=== PATIENT | male | born 1945 | race American Indian/Alaskan Native ===

== ENCOUNTER 2018-07-28 14:11 | Emergency (ER) | payer MEDICARE, OTHER ==
[~2018-07-28] VITALS: Ht 180.3 cm; Wt 91.6 kg
--- OUTSIDE RECORDS SUMMARY | ~2018-07-28 | XMS | Encounter Summary ---
Demographics + + + | Address | [address] | | | [place] [address] | + + + | Home Phone | | + + + | Preferred Language | Unknown | + + + | Marital Status | Unknown | + + + | Congregational Affiliation | 1077 | + + + | Race | Unknown | + + + | Ethnic Group | Unknown | + + + Author + + + | Author | [facility] | + + + | Organization | [facility] | + + + | Address | Unknown | + + + | Phone | Unavailable | + + + Support + + +---------+ + | Name | Relationship | Address | Phone | + + +---------+ + | Betty Conner | ECON | Unknown | | + + +---------+ + Care Team Providers + +------+ + | Care Barrel Filler Head Name | Role | Phone | + +------+ + | Clifton Stevens MD | PCP | | + +------+ + Reason for Visit +--------+ + | Reason | Comments | +--------+ + | Other | April 2018-[facility] Provider Dialysis Rounding Note | +--------+ + Encounter Details +--------+ + + + + | Date | Type | Department | Care Team | Description | +--------+ + + + + | 05/14/ | Documentati | [facility] | Josh Franklin MD | Other (April | 2018 | on Only | [place] [address] | [address] | 2019-[facility] Provider | | | | [address] | [address] [place], [place] | Dialysis Rounding | | | | [place] [address] | [address] | Note) | | | | [phone] | | | +--------+ + + + + Social History + + + +--------+ + | Tobacco Use | Types | Packs/Day | Years | Date | | | | | Used | | + + + +--------+ + | Former Smoker | Cigarettes | 0.5 | 2 | Quit: 11/10/1968 | + + + +--------+ + + +---+---+---+ | Smokeless Tobacco: | | | | | Never Used | | | | + +---+---+---+ + + +---------+ + | Alcohol Use | Drinks/We | oz/Week | Comments | | | ek | | | + + +---------+ + | Yes | 1 Cans | 1.2 | occasional | | | of beer | | | | | 1 | | | | | Standard | | | | | drinks or | | | | | | | | | | equivalen | | | | | t | | | + + +---------+ + + + + | Sex Assigned at | Date Recorded | | | | + + + | Not on file | | + + + as of this encounter Plan of Treatment +--------+---------+ + + + | Date | Type | Specialty | Care Team | Description | +--------+---------+ + + + | 08/04/ | Office | Cardiology | Yazan Sullivan, | | | 2018 | Visit | | MD Colin Levin | | | | | | Dr [place], | | | | | | [place] [address] | | | | | | [phone] | | | | | | | | +--------+---------+ + + + as of this encounter Visit Diagnoses Not on filein this encounter"
--- OUTSIDE RECORDS SUMMARY | ~2018-07-28 | XMS | Encounter Summary ---
Demographics + + + | Address | [address] | | | [place] [address] | + + + | Home Phone | | + + + | Preferred Language | Unknown | + + + | Marital Status | Unknown | + + + | Baptist Affiliation | 1077 | + + + | Race | Unknown | + + + | Ethnic Group | Unknown | + + + Author + + + | Author | [facility] | + + + | Organization | [facility] | + + + | Address | Unknown | + + + | Phone | Unavailable | + + + Support + + +---------+ + | Name | Relationship | Address | Phone | + + +---------+ + | Betty Conner | ECON | Unknown | | + + +---------+ + Care Team Providers + +------+ + | Care Group Chief Operator Name | Role | Phone | + +------+ + | Clifton Stevens MD | PCP | | + +------+ + Encounter Details +--------+ + + + + | Date | Type | Department | Care Team | Description | +--------+ + + + + | 05/06/ | Ancillary | [facility] | Clifton Stevens MD | Congestive heart | | 2019 | Orders | ECHO | [id number] | failure, unspecified | | | | | [place] | HF chronicity, | | | | | [address] | unspecified heart | | | | | | failure type (HCC) | +--------+ + + + + Social [...] [place], | | | | | | [place] [address] | | | | | | [phone] | | | | | | | | +--------+---------+ + + + as of this encounter Results ECHO outside interpretation standard (05/06/2018 4:57 PM) + + + | Impressions | Performed At | + + + | 1. The left ventricle is mildly dilated, inferior segment | [facility] | | hypokinesis, moderately impaired systolic function EF 35-40%. 2. The | RADIOLOGY | | right ventricle is mildly enlarged with mildly impaired systolic | | | function. 3. Mild tricuspid regurgitation and severe pulmonary | | | hypertension RVSP 65 mmHg. 4. There is no pericardial effusion. 5. | | | Compared to the findings of the prior study, left ventricular systolic | | | function has deteriorated and pulmonary pressure increased. | | + + + + + + | Narrative | Performed At | + + + | Patient Name: Sj Alex Date of | [facility] | | : 1945 Performing | RADIOLOGY | | Physician: Yazan Sullivan | | | | | | INDICATIONS CHF CONCLUSIONS 1. The | | | left ventricle is mildly dilated, inferior segment hypokinesis, | | | moderately impaired systolic function EF 35-40%. 2. The right | | | ventricle is mildly enlarged with mildly impaired systolic function. | | | 3. Mild tricuspid regurgitation and severe pulmonary hypertension RVSP | | | 65 mmHg. 4. There is no pericardial effusion. 5. Compared to the | | | findings of the prior study, left ventricular systolic function has | | | deteriorated and pulmonary pressure increased. FINDINGS -------- | | | ECG rhythm: Sinus rhythm. Study: A 2-dimensional transthoracic | | | echocardiogram with m-mode, spectral and color flow Doppler was | | | perfomed. Study: This was a technically adequate study. Left | | | Ventricle: Overall left ventricular systolic function is moderately | | | impaired with, an EF between 35 - 40 %. Left Ventricle: The left | | | ventricle is mildly dilated. Left Ventricle: There is mild | | | concentric left ventricular hypertrophy. Left Ventricle: There is | | | moderate global hypokinesis of LV contractility. Left Ventricle: | | | Pseudonormal LV diastolic filling pattern, consistent with elevated LA | | | pressure and moderate dysfunction (Grade II). Right Ventricle: The | | | right ventricle is mildly enlarged. Right Ventricle: The right | | | ventricular systolic function is mildly impaired. Left Atrium: The | | | left atrium is moderately enlarged. Right Atrium: The right atrium is | | | mildly enlarged. Aortic Valve: The aortic valve appears to be | | | trileaflet. Aortic Valve: The aortic valve is mildly calcified. | | | Aortic Valve: Trace amount of aortic regurgitation. Aortic Valve: | | | There is no evidence of aortic stenosis. Aortic Valve: Aortic valve | | | is mildly thickened. Mitral Valve: Mild mitral regurgitation is | | | present. Mitral Valve: Mild mitral annular calcification present. | | | Tricuspid Valve: The tricuspid valve appears structurally normal. | | | Tricuspid Valve: Mild tricuspid regurgitation present. Tricuspid | | | Valve: There is moderate to severe pulmonary hypertension. Tricuspid | | | Valve: The right ventricular systolic pressure (pulmonary artery | | | systolic pressure), as measured by Doppler, is 65.84mmHg. Pulmonic | | | Valve: The pulmonic valve is normal. Pulmonic Valve: | | | Trace pulmonic regurgitation. Pericardium: There is no pericardial | | | effusion. Pericardium: No pleural effusion seen. IVC/Hepatic | | | Veins: The IVC is normal size (1.5-2.5cm) and collapses about 50% with | | | sniff, consistent with central venous pressures of 10 mmHg. Aorta: | | | The aortic root, ascending aorta and aortic arch are grossly normal in | | | size. General comments: Compared to the findings of the prior study, | | | left ventricular systolic function has deteriorated and pulmonary | | | pressure increased. MEASUREMENTS Ao Diam: 3.72 | | | cm Ao sinus: 4.[address] junct: 4.43 cm IVC: 2.27 cm | | | LA Major: 6.14 cm EDV(Teich): 169.12 ml IVSd: 1.30 cm | | | LVIDd: 5.83 cm LVPWd: 1.26 cm LVOT Diam: 2.42 cm | | | %FS: 19.91 % EF(Teich): 40.19 % ESV(Teich): 101.14 ml | | | LVIDs: 4.67 cm SV(Teich): 67.97 ml RA Major: 5.84 cm RV | | | Major: 9.17 cm RV Minor: 4.81 cm RVIDd: 3.76 cm LVEF | | | MOD A2C: 36.31 % SV MOD A2C: 64.17 ml LVEF MOD A4C: | | | 39.15 % SV MOD A4C: 81.15 ml EF Biplane: 38.55 % LVEDV MOD | | | BP: 196.49 ml LVESV MOD BP: 120.73 ml LVEDV MOD A2C: | | | 176.71 ml LVLd A2C: 9.83 cm LVEDV MOD A4C: 207.25 ml LVLd | | | A4C: 10.37 cm LVESV MOD A2C: 112.54 ml LVLs A2C: 8.85 cm | | | LVESV MOD A4C: 126.10 ml LVLs A4C: 9.10 cm LAESV(A-L): | | | 96.37 ml LAESV Index (A-L): 44.82 ml/m2 LAAs A2C: 24.58 cm2 | | | LAESV A-L A2C: 85.82 ml LAESV MOD A2C: 84.22 ml LALs | | | A2C: 5.97 cm LAAs A4C: 27.60 cm2 LAESV A-L A4C: 99.51 ml | | | LAESV MOD A4C: 87.03 ml LALs A4C: 6.49 cm RAAs: 21.69 | | | cm2 RAESV A-L: 69.03 ml RAESV MOD: 66.90 ml RALs: 5.78 | | | cm TAPSE: 1.63 cm AV Env.Ti: 265.67 ms AV maxP.06 | | | mmHg AV meanP.06 mmHg AV Vmax: 1.12 m/s AV Vmean: | | | 0.82 m/s AV VTI: 21.86 cm OLIVIA Vmax: 3.02 cm2 OLIVIA (VTI): | | | 3.56 cm2 AVAI Vmax: 0.00 cm2/m2 AVAI (VTI): 0.00 cm2/m2 | | | LVOT Env.Ti: 361.77 ms LVOT maxP.17 mmHg LVOT | | | meanP.07 mmHg LVSI Dopp: 36.24 ml/m2 LVSV Dopp: | | | 77.92 ml LVOT Vmax: 0.73 m/s LVOT Vmean: 0.46 m/s LVOT | | | VTI: 16.90 cm MV A Kimani: 0.33 m/s MV Dec [facility] [place]: 3.50 m/s2 | | | MV DecT: 140.55 ms MV E Kimani: 0.49 m/s MV E/A Ratio: | | | 1.45 E/E' Sept: 11.99 E' Lat: 0.07 m/s E' Sept: 0.04 | | | m/s RAP: 10 mmHg RVSP: 65.83 mmHg TR maxP.83 mmHg | | | TR Vmax: 3.73 m/s Containers Sales Representative: Authenticated by: Yazan | | | [facility] Report Date/Time: 05-06-2018 19:38:26 | | + + + + + | Procedure Note | + + | Ghanshyam, Rad Results In - 05/06/2018 7:40 PM PST Patient Name: Fabien Alex | | of : 1945ccession: [id number] Physician: Yazan | | [facility] INDICATIONS------ | | -----CHFCONCLUSIONS 1. The left ventricle is mildly dilated, inferior segment | | hypokinesis, moderately impaired systolic function EF 35-40%.2. The right ventricle is | | mildly enlarged with mildly impaired systolic function.3. Mild tricuspid regurgitation | | and severe pulmonary hypertension RVSP 65 mmHg.4. There is no pericardial effusion.5. | | Compared to the findings of the prior study, left ventricular systolic function has | | deteriorated and pulmonary pressure increased.FINDINGS--------ECG rhythm: Sinus | | rhythm.Study: A 2-dimensional transthoracic echocardiogram with m-mode, spectral and | | color flow Doppler was perfomed. Study: This was a technically adequate study.Left | | Ventricle: Overall left ventricular systolic function is moderately impaired with, an EF | | between 35 - 40 %. Left Ventricle: The left ventricle is mildly dilated. Left | | Ventricle: There is mild concentric left ventricular hypertrophy. Left Ventricle: There | | is moderate global hypokinesis of LV contractility. Left Ventricle: Pseudonormal LV | | diastolic filling pattern, consistent with elevated LA pressure and moderate dysfunction | | (Grade II).Right Ventricle: The right ventricle is mildly enlarged. Right Ventricle: | | The right ventricular systolic function is mildly impaired.Left Atrium: The left atrium | | is moderately enlarged.Right Atrium: The right atrium is mildly enlarged.Aortic Valve: | | The aortic valve appears to be trileaflet. Aortic Valve: The aortic valve is mildly | | calcified. Aortic Valve: Trace amount of aortic regurgitation. Aortic Valve: There is | | no evidence of aortic stenosis. Aortic Valve: Aortic valve is mildly thickened.Mitral | | Valve: Mild mitral regurgitation is present. Mitral Valve: Mild mitral annular | | calcification present.Tricuspid Valve: The tricuspid valve appears structurally normal. | | Tricuspid Valve: Mild tricuspid regurgitation present. Tricuspid Valve: There is | | moderate to severe pulmonary hypertension. Tricuspid Valve: The right ventricular | | systolic pressure (pulmonary artery systolic pressure), as measured by Doppler, is | | 65.84mmHg.Pulmonic Valve: The pulmonic valve is normal. Pulmonic Valve: Trace pulmonic | | regurgitation.Pericardium: There is no pericardial effusion. Pericardium: No pleural | | effusion seen.IVC/Hepatic Veins: The IVC is normal size (1.5-2.5cm) and collapses about | | 50% with sniff, consistent with central venous pressures of 10 mmHg.Aorta: The aortic | | root, ascending aorta and aortic arch are grossly normal in size.General comments: | | Compared to the findings of the prior study, left ventricular systolic function has | | deteriorated and pulmonary pressure increased.MEASUREMENTS Ao Diam: 3.72 | | cmAo sinus: 4.[address] junct: 4.43 cmIVC: 2.27 cmLA Major: 6.14 cmEDV(Teich): | | 169.12 mlIVSd: 1.30 cmLVIDd: 5.83 cmLVPWd: 1.26 cmLVOT Diam: 2.42 cm%FS: | | 19.91 %EF(Teich): 40.19 %ESV(Teich): 101.14 mlLVIDs: 4.67 cmSV(Teich): 67.97 | | mlRA Major: 5.84 cmRV Major: 9.17 cmRV Minor: 4.81 cmRVIDd: 3.76 cmLVEF MOD A2C: | | 36.31 %SV MOD A2C: 64.17 mlLVEF MOD A4C: 39.15 %SV MOD A4C: 81.15 mlEF Biplane: | | 38.55 %LVEDV MOD BP: 196.49 mlLVESV MOD BP: 120.73 mlLVEDV MOD A2C: 176.71 | | mlLVLd A2C: 9.83 cmLVEDV MOD A4C: 207.25 mlLVLd A4C: 10.37 cmLVESV MOD A2C: | | 112.54 mlLVLs A2C: 8.85 cmLVESV MOD A4C: 126.10 mlLVLs A4C: 9.10 cmLAESV(A-L): | | 96.37 mlLAESV Index (A-L): 44.82 ml/m2LAAs A2C: 24.58 [id number] A-L A2C: 85.82 | | mlLAESV MOD A2C: 84.22 mlLALs A2C: 5.97 cmLAAs A4C: 27.60 [id number] A-L A4C: | | 99.51 mlLAESV MOD A4C: 87.03 mlLALs A4C: 6.49 cmRAAs: 21.69 [id number] A-L: 69.03 | | mlRAESV MOD: 66.90 mlRALs: 5.78 cmTAPSE: 1.63 cmAV Env.Ti: 265.67 msAV maxPG: | | 5.06 mmHgAV meanP.06 mmHgAV Vmax: 1.12 m/Kelvin Vmean: 0.82 m/Kelvin VTI: 21.86 | | cmAVA Vmax: 3.02 cm2AVA (VTI): 3.56 [id number] Vmax: 0.00 cm2/m2AVAI (VTI): 0.00 | | cm2/m2LVOT Env.Ti: 361.77 msLVOT maxP.17 mmHgLVOT meanP.07 mmHgLVSI Dopp: | | 36.24 ml/m2LVSV Dopp: 77.92 mlLVOT Vmax: 0.73 m/sLVOT Vmean: 0.46 m/sLVOT VTI: | | 16.90 cmMV A Kimani: 0.33 m/sMV Dec [facility] [place]: 3.50 m/s2MV DecT: 140.55 msMV E Kimani: | | 0.49 m/sMV E/A Ratio: 1.45 E/E' Sept: 11.99 E' Lat: 0.07 m/sE' Sept: 0.04 | | m/sRAP: 10 mmHgRVSP: 65.83 mmHgTR maxP.83 mmHgTR Vmax: 3.73 m/sSonographer: | | Authenticated by: Yazan SullivanReport Date/Time: 05-06-2018 19:38:26IMPRESSION:1. The | | left ventricle is mildly dilated, inferior segment hypokinesis, moderately impaired | | systolic function EF 35-40%.2. The right ventricle is mildly enlarged with mildly | | impaired systolic function.3. Mild tricuspid regurgitation and severe pulmonary | | hypertension RVSP 65 mmHg.4. There is no pericardial effusion.5. Compared to the | | findings of the prior study, left ventricular systolic function has deteriorated and | | pulmonary pressure increased. | |EDV(Teich): 169.12 ml | |IVSd: 1.30 cm | |LVIDd: 5.83 cm | |LVPWd: 1.26 cm | |LVOT Diam: 2.42 cm | |%FS: 19.91 % | |EF(Teich): 40.19 % | |ESV(Teich): 101.14 ml | |LVIDs: 4.67 cm | |SV(Teich): 67.97 ml | |RA Major: 5.84 cm | |RV Major: 9.17 cm | |RV Minor: 4.81 cm | |RVIDd: 3.76 cm | |LVEF MOD A2C: 36.31 % | |SV MOD A2C: 64.17 ml | |LVEF MOD A4C: 39.15 % | |SV MOD A4C: 81.15 ml | |EF Biplane: 38.55 % | |LVEDV MOD BP: 196.49 ml | |LVESV MOD BP: 120.73 ml | |LVEDV MOD A2C: 176.71 ml | |LVLd A2C: 9.83 cm | |LVEDV MOD A4C: 207.25 ml | |LVLd A4C: 10.37 cm | |LVESV MOD A2C: 112.54 ml | |LVLs A2C: 8.85 cm | |LVESV MOD A4C: 126.10 ml | |LVLs A4C: 9.10 cm | |LAESV(A-L): 96.37 ml | |LAESV Index (A-L): 44.82 ml/m2 | |LAAs A2C: 24.58 cm2 | |LAESV A-L A2C: 85.82 ml | |LAESV MOD A2C: 84.22 ml | |LALs A2C: 5.97 cm | |LAAs A4C: 27.60 cm2 | |LAESV A-L A4C: 99.51 ml | |LAESV MOD A4C: 87.03 ml | |LALs A4C: 6.49 cm | |RAAs: 21.69 cm2 | |RAESV A-L: 69.03 ml | |RAESV MOD: 66.90 ml | |RALs: 5.78 cm | |TAPSE: 1.63 cm | |AV Env.Ti: 265.67 ms | |AV maxP.06 mmHg | |AV meanP.06 mmHg | |AV Vmax: 1.12 m/s | |AV Vmean: 0.82 m/s | |AV VTI: 21.86 cm | |OLIVIA Vmax: 3.02 cm2 | |OLIVIA (VTI): 3.56 cm2 | |AVAI Vmax: 0.00 cm2/m2 | |AVAI (VTI): 0.00 cm2/m2 | |LVOT Env.Ti: 361.77 ms | |LVOT maxP.17 mmHg | |LVOT meanP.07 mmHg | |LVSI Dopp: 36.24 ml/m2 | |LVSV Dopp: 77.92 ml | |LVOT Vmax: 0.73 m/s | |LVOT Vmean: 0.46 m/s | |LVOT VTI: 16.90 cm | |MV A Kimani: 0.33 m/s | |MV Dec [facility] [place]: 3.50 m/s2 | |MV DecT: 140.55 ms | |MV E Kimani: 0.49 m/s | |MV E/A Ratio: 1.45 | |E/E' Sept: 11.99 | |E' Lat: 0.07 m/s | |E' Sept: 0.04 m/s | |RAP: 10 mmHg | |RVSP: 65.83 mmHg | |TR maxP.83 mmHg | |TR Vmax: 3.73 m/s | | | |Containers Sales Representative: | |Authenticated by: Yazan Robertluz | |Report Date/Time: 05-06-2018 19:38:26 | | | |IMPRESSION: | |1. The left ventricle is mildly dilated, inferior segment hypokinesis, moderately impaired systolic function EF 35-40%. | |2. The right ventricle is mildly enlarged with mildly impaired systolic function. | |3. Mild tricuspid regurgitation and severe pulmonary hypertension RVSP 65 mmHg. | |4. There is no pericardial effusion. | |5. Compared to the findings of the prior study, left ventricular systolic function has dete riorated and pulmonary pressure increased. | + + + + + + + | Performing | Address | City/State/Zipcode | Phone Number | | Organization | | | | + + + + + | [facility] | [address] | [place] [address] | | + + + + + in this encounter Visit Diagnoses + + | Diagnosis | + + | Congestive heart failure, unspecified HF chronicity, unspecified heart failure type | | (HCC) | + +"
--- OUTSIDE RECORDS SUMMARY | ~2018-07-28 | XMS | Encounter Summary ---
Demographics + + + | Address | [address] [place] [address] | | | [place] [address] | + + + | Home Phone | | + + + | Preferred Language | Unknown | + + + | Marital Status | Unmarried Domestic Partner | + + + | Baptism Affiliation | Unknown | + + + | Race | or | + + + | Ethnic Group | Not or | + + + Author + + + | Author | [facility] [employer] [facility] | + + + | Organization | [facility] [employer] [facility] | + + + | Address | Unknown | + + + | Phone | Unavailable | + + + Support + + +---------+ + | Name | Relationship | Address | Phone | + + +---------+ + | Betty Conner | ECON | Unknown | | + + +---------+ + Care Team Providers + +------+ + | Care Pulverizer Operator Name | Role | Phone | + +------+ + | Clifton Stevens MD | PCP | | + +------+ + Reason for Visit + + + | Reason | Comments | + + + | Financial Review | | + + + Encounter Details +--------+ + + + + | Date | Type | Department | Care Team | Description | +--------+ + + + + | 01/09/ | Documentati | Transplant | Alvaro Mc[facility] | Financial Review | | 2014 | on | Coordinators [address] | [place], [place] | | | | | [address] | [address] | | | | | [address] [place], [place] | | | | | | [address] | | | | | | [phone] | | | +--------+ + + + + Social History + +-------+ +--------+------+ | Tobacco Use | Types | Packs/Day | Years | Date | | | | | Used | | + +-------+ +--------+------+ | Never Assessed | | | | | + +-------+ +--------+------+ + + + | Sex Assigned at | Date Recorded | | | | + + + | Not on file | | + + + + + + + | Job Start Date | Occupation | Industry | + + + + | Not on file | Not on file | Not on file | + + + + + + + + | Travel History | Travel Start | Travel End | + + + + + + | No recent travel history available. | + + documented as of this encounter Plan of Treatment Not on filedocumented as of this encounter Visit Diagnoses Not on filedocumented in this encounter"
--- OUTSIDE RECORDS SUMMARY | ~2018-07-28 | XMS | Encounter Summary ---
Demographics + + + | Address | [address] | | | [place] [address] | + + + | Home Phone | | + + + | Preferred Language | Unknown | + + + | Marital Status | Unknown | + + + | Taoist Affiliation | 1077 | + + + | Race | Unknown | + + + | Ethnic Group | Unknown | + + + Author + + + | Author | [facility] | + + + | Organization | [facility] [employer] [facility] | + + + | Address | Unknown | + + + | Phone | Unavailable | + + + Support + + +---------+ + | Name | Relationship | Address | Phone | + + +---------+ + | Betty Conner | ECON | Unknown | | + + +---------+ + Care Team Providers + +------+ + | Care Dairy Worker Name | Role | Phone | + +------+ + | Clifton Stevens MD | PCP | | + +------+ + Encounter Details +--------+ + + + + | Date | Type | Department | Care Team | Description | +--------+ + + + + | 05/06/ | Ancillary | [facility] | Clifton Stevens MD | Congestive heart | | 2019 | Procedure | ECHO | [id number] | failure, unspecified | | | | | [place] | HF chronicity, | | | | | [address] | unspecified heart | | | | [...] [place], | | | | | | [place] [address] | | | | | | [phone] | | | | | | | | +--------+---------+ + + + as of this encounter Procedures + +--------+ + + + | Procedure Name | Priori | Date/Time | Associated Diagnosis | Comments | | | ty | | | | + +--------+ + + + | ECHO OUTSIDE | Routin | 05/06/2018 | Congestive heart | Results for this | | INTERPRETATION | e | 4:57 PM | failure, unspecified | procedure are in the | | STANDARD | | PST | HF chronicity, | results section. | | | | | unspecified heart | | | | | | failure type (HCC) | | + +--------+ + + + in this encounter Results ECHO outside interpretation standard [...] Patient Name: Sj Alex Date of | [facility] | | : 1945 Performing | RADIOLOGY [...] MV A Kimani: 0.33 m/s MV Dec Ro[place]: 3.50 m/s2 | | | MV DecT: 140.55 ms MV E Kimani: 0.49 m/s MV E/A Ratio: | | | 1.45 E/E' Sept: 11.99 E' Lat: 0.07 m/s E' Sept: 0.04 | | | m/s RAP: 10 mmHg RVSP: 65.83 mmHg TR maxP.83 mmHg | | | TR Vmax: 3.73 m/s Django Developer: Authenticated by: Yazan | | | Nate Report Date/Time: 05-06-2018 19:38:26 | | + + + + + | Procedure Note | + + | Rafael Morrissey Results In - 05/06/2018 7:40 PM PST Patient Name: Fabien Alex | | of : 1945ccession: [id number] Physician: Yazan | | [place] INDICATIONS------ | | -----CHFCONCLUSIONS 1. The left [...] mlLAESV Index (A-L): 44.82 ml/m2LAAs A2C: 24.58 [id number] A-L A2C: 85.82 | | mlLAESV MOD A2C: 84.22 mlLALs A2C: 5.97 cmLAAs A4C: 27.60 [id number] A-L A4C: | | 99.51 mlLAESV MOD A4C: 87.03 mlLALs A4C: 6.49 cmRAAs: 21.69 [id number] A-L: 69.03 | | mlRAESV MOD: 66.90 mlRALs: 5.78 cmTAPSE: 1.63 cmAV Env.Ti: 265.67 msAV maxPG: | | 5.06 mmHgAV meanP.06 mmHgAV Vmax: 1.12 m/Kelvin Vmean: 0.82 m/Kelvin VTI: 21.86 | | cmAVA Vmax: 3.02 cm2AVA (VTI): 3.56 [id number] Vmax: 0.00 cm2/m2AVAI (VTI): 0.00 | | cm2/m2LVOT Env.Ti: 361.77 msLVOT maxP.17 mmHgLVOT meanP.07 mmHgLVSI Dopp: | | 36.24 ml/m2LVSV Dopp: 77.92 mlLVOT Vmax: 0.73 m/sLVOT Vmean: 0.46 m/sLVOT VTI: | | 16.90 cmMV A Kimani: 0.33 m/sMV Dec Rolette: 3.50 m/s2MV DecT: 140.55 msMV E Kimani: | | 0.49 m/sMV E/A Ratio: 1.45 E/E' Sept: 11.99 E' Lat: 0.07 m/sE' Sept: 0.04 | | m/sRAP: 10 mmHgRVSP: 65.83 mmHgTR maxP.83 mmHgTR Vmax: 3.73 m/sSonographer: | | Authenticated by: Yazan Butcher Date/Time: 05-06-2018 19:38:26IMPRESSION:1. The | | left [...] A Kimani: 0.33 m/s | |MV Dec Rolette: 3.50 m/s2 | |MV DecT: 140.55 ms | |MV E Kimani: 0.49 m/s | |MV E/A Ratio: 1.45 | |E/E' Sept: 11.99 | |E' Lat: 0.07 m/s | |E' Sept: 0.04 m/s | |RAP: 10 mmHg | |RVSP: 65.83 mmHg | |TR maxP.83 mmHg | |TR Vmax: 3.73 m/s | | | |Django Developer: | |Authenticated by: Yazan Sullivan | |Report Date/Time: 05-06-2018 19:38:26 | | [...] | + + + + + | [facility] | [address] | [place] [address] | | + + + + + in this encounter Visit Diagnoses + + | Diagnosis | + + | Congestive heart failure, unspecified HF chronicity, unspecified heart failure type | | (HCC) | + +"
--- OUTSIDE RECORDS SUMMARY | ~2018-07-28 | XMS | Encounter Summary ---
Demographics + + + | Address | [address] [place] [address] | | | [place] [address] | + + + | Home Phone | | + + + | Preferred Language | Unknown | + + + | Marital Status | Unmarried Domestic Partner | + + + | Rastafari Affiliation | Unknown | + + + | Race | or | + + + | Ethnic Group | Not or | + + + Author + + + | Author | [facility] [employer] [facility] | + + + | Organization | [facility] [employer] [facility] | + + + | Address | Unknown | + + + | Phone | Unavailable | + + + Support + + +---------+ + | Name | Relationship | Address | Phone | + + +---------+ + | Betty Conner | ECON | Unknown | | + + +---------+ + Care Team Providers + +------+ + | Care Barrel Assembly Inspector Name | Role | Phone | + +------+ + | Clifton Stevens MD | PCP | | + +------+ + Encounter Details +--------+ + + + + | Date | Type | Department | Care Team | Description | +--------+ + + + + | 12/26/ | Hospital | Registration [facility] | | | | 2014 | Encounter | [address] | | | | | | [place] | | | | | | [place], [place] | | | | | | [address] | | | +--------+ + + + [...]
--- OUTSIDE RECORDS SUMMARY | ~2018-07-28 | XMS | Encounter Summary ---
Demographics + + + | Address | [address] | | | [place] [address] | + + + | Home Phone | | + + + | Preferred Language | Unknown | + + + | Marital Status | Unknown | + + + | Rastafarian Affiliation | 1077 | + + + | Race | Unknown | + + + | Ethnic Group | Unknown | + + + Author + + + | Author | [facility] | + + + | Organization | [facility] | + + + | Address | Unknown | + + + | Phone | Unavailable | + + + Support + + +---------+ + | Name | Relationship | Address | Phone | + + +---------+ + | Betty Conner | ECON | Unknown | | + + +---------+ + Care Team Providers + +------+ + | Care Assistant Paralegal Name | Role | Phone | + +------+ + | Clifton Stevens MD | PCP | | + +------+ + Reason for Visit +--------+ + | Reason | Comments | +--------+ + | Other | May 2018-[facility] Provider Dialysis Rounding Note | +--------+ + Encounter Details +--------+ + + + + | Date | Type | Department | Care Team | Description | +--------+ + + + + | 06/16/ | Documentati | [facility] | Josh Franklin MD | Other (May | | 2018 | on Only | [address] | [facility] Provider | | | | [address] | [address] [place], [place] | Dialysis Rounding | | | | [place] [address] | [phone] | Note) | | | | [phone] | | | +--------+ + + + [...] [place], | | | | | | [place] [address] | | | | | | [phone] | | | | | | | | +--------+---------+ + + + as of this encounter Visit Diagnoses Not on filein this encounter"
--- OUTSIDE RECORDS SUMMARY | ~2018-07-28 | XMS | Encounter Summary ---
Demographics + + + | Address | [address] | | | [place] [address] | + + + | Home Phone | | + + + | Preferred Language | Unknown | + + + | Marital Status | Unknown | + + + | Methodist Affiliation | 1077 | + + + | Race | Unknown | + + + | Ethnic Group | Unknown | + + + Author + + + | Author | [facility] | + + + | Organization | [facility] | + + + | Address | Unknown | + + + | Phone | Unavailable | + + + Support + + +---------+ + | Name | Relationship | Address | Phone | + + +---------+ + | Betty Conner | ECON | Unknown | | + + +---------+ + Care Team Providers + +------+ + | Care Corporate Ethics Officer Name | Role | Phone | + +------+ + | Clifton Stevens MD | PCP | | + +------+ + Encounter Details +--------+ + + + + | Date | Type | Department | Care Team | Description | +--------+ + + + + | 06/15/ | Ancillary | [facility] | Ruby Manley FNP | Dyspnea, unspecified | | 2019 | Procedure | ECHO | [address] | type | | | | | [place] | | | | | | [id number] | | | | | | | | +--------+ + + + [...] 08/04/ | Office | Cardiology | Yazan Bo, | | | 2019 | Visit | | MD Colin Levin | | | | | | Dr [address], | | | | | | [place] [address] | | | | | | [phone] | | | | | | | | +--------+---------+ + + + as of this encounter Procedures + +--------+ + + + | Procedure Name | Priori | Date/Time | Associated Diagnosis | Comments | | | ty | | | | + +--------+ + + + | ECHO OUTSIDE | Routin | 06/15/2018 | Dyspnea, | Results for this | | INTERPRETATION | e | 12:49 PM | unspecified type | procedure are in the | | STANDARD | | PDT | | results section. | + +--------+ + + + in this encounter Results ECHO outside interpretation standard (06/15/2018 12:49 PM) + + + | Impressions | Performed At | + + + | 1. The left ventricle is normal in size, mild concentric hypertrophy | [facility] | | and severely impaired systolic function EF 25-30%. 2. The right | RADIOLOGY | | ventricle is mildly enlarged with impaired systolic function. 3. | | | Severe tricuspid regurgitation and moderate to severe pulmonary | | | hypertension RVSP 62 mmHg. 4. There is no pericardial effusion. 5. | | | Compared to the findings of the prior study, left ventricular systolic | | | function has deteriorated. | | + + + + + + | Narrative | Performed At | + + + | Patient Name: AbiSj Date of | [facility] | | : 1945 Performing | RADIOLOGY | | Physician: Yazan Bo MD | | | | | | INDICATIONS dyspnea CONCLUSIONS 1. The | | | left ventricle is normal in size, mild concentric hypertrophy and | | | severely impaired systolic function EF 25-30%. 2. The right ventricle | | | is mildly enlarged with impaired systolic function. 3. Severe | | | tricuspid regurgitation and moderate to severe pulmonary hypertension | | | RVSP 62 mmHg. 4. There is no pericardial effusion. 5. Compared to | | | the findings of the prior study, left ventricular systolic function | | | has deteriorated. FINDINGS -------- ECG rhythm: Sinus rhythm. | | | Study: A 2-dimensional transthoracic echocardiogram with m-mode, | | | spectral and color flow Doppler was perfomed. Study: This was a | | | technically adequate study. Left Ventricle: Overall left ventricular | | | systolic function is severely impaired with, an EF between 25 - 30 %. | | | Left Ventricle: The left ventricle cavity size is normal. Left | | | Ventricle: There is mild concentric left ventricular hypertrophy. | | | Left Ventricle: There is severe global hypokinesis of LV | | | contractility. Left Ventricle: Restrictive LV diastolic filling | | | pattern, consistent with elevated LA pressure and severe dysfunction | | | (grade III). Right Ventricle: The right ventricle is mildly enlarged. | | | Right Ventricle: The right ventricular systolic function is | | | moderately impaired. Left Atrium: The left atrium is mildly enlarged. | | | Right Atrium: The right atrium is markedly enlarged. Aortic Valve: | | | Aortic valve is mildly thickened. Aortic Valve: The aortic valve | | | appears to be trileaflet. Aortic Valve: The aortic valve is mildly | | | calcified. Aortic Valve: Trace amount of aortic regurgitation. | | | Aortic Valve: There is no evidence of aortic stenosis. Mitral Valve: | | | Mild mitral regurgitation is present. Mitral Valve: Mild mitral | | | annular calcification present. Tricuspid Valve: The tricuspid valve | | | appears structurally normal. Tricuspid Valve: Severe tricuspid | | | regurgitation present. Tricuspid Valve: There is moderate to severe | | | pulmonary hypertension. Tricuspid Valve: The right ventricular | | | systolic pressure (pulmonary artery systolic pressure), as measured by | | | Doppler, is 62.22mmHg. Pulmonic Valve: The pulmonic valve is normal. | | | Pulmonic Valve: Trace pulmonic regurgitation. Pericardium: | | | There is no pericardial effusion. Pericardium: No pleural effusion | | | seen. IVC/Hepatic Veins: The IVC is dilated (>2.5cm) and collapses | | | <50% with sniff, consistent with central venous pressures of | | | 15-20mmHg. Aorta: The Sinus of Valsalva 46 mm, St Junction 41 mm | | | and ascending aorta 40 mm are dilated. General comments: Compared | | | to the findings of the prior study, left ventricular systolic function | | | has deteriorated. MEASUREMENTS Ao asc: 4.00 | | | cm Ao Diam: 3.74 cm Ao sinus: 4.[address] junct: 4.12 | | | cm IVC: 3.01 cm EDV(Teich): 135.16 ml IVSd: 1.29 cm | | | LVIDd: 5.29 cm LVPWd: 1.31 cm LVOT Area: 3.98 cm2 LVOT | | | Diam: 2.25 cm %FS: 17.04 % EF(Teich): 35.33 % | | | ESV(Teich): 87.40 ml LVIDs: 4.39 cm SV(Teich): 47.75 ml | | | RV Major: 9.28 cm RV Minor: 4.82 cm RVIDd: 3.74 cm | | | LVEF MOD A2C: 32.09 % SV MOD A2C: 51.24 ml LVEF MOD A4C: | | | 35.16 % SV MOD A4C: 67.69 ml EF Biplane: 33.80 % LVEDV MOD | | | BP: 175.80 ml LVESV MOD BP: 116.37 ml LVEDV MOD A2C: | | | 159.66 ml LVLd A2C: 9.89 cm LVEDV MOD A4C: 192.51 ml LVLd | | | A4C: 10.05 cm LVESV MOD A2C: 108.42 ml LVLs A2C: 9.21 cm | | | LVESV MOD A4C: 124.82 ml LVLs A4C: 9.18 cm LAESV(A-L): | | | 87.49 ml LAESV Index (A-L): 40.69 ml/m2 LAAs A2C: 25.94 cm2 | | | LAESV A-L A2C: 88.53 ml LALs A2C: 6.45 cm LAAs A4C: | | | 25.60 cm2 LAESV A-L A4C: 86.33 ml LALs A4C: 6.44 cm | | | RAAs: 28.17 cm2 RAESV A-L: 98.31 ml RAESV MOD: 96.39 ml | | | RALs: 6.85 cm TAPSE: 1.55 cm AV maxP.29 mmHg AV | | | meanP.40 mmHg AV Vmax: 1.35 m/s AV Vmean: 0.84 m/s | | | AV VTI: 23.87 cm OLIVIA Vmax: 2.45 cm2 OLIVIA (VTI): 2.54 cm2 | | | AVAI Vmax: 0.00 cm2/m2 AVAI (VTI): 0.00 cm2/m2 LVOT | | | maxP.75 mmHg LVOT meanP.34 mmHg LVSI Dopp: 28.31 | | | ml/m2 LVSV Dopp: 60.87 ml LVOT Vmax: 0.83 m/s LVOT | | | Vmean: 0.55 m/s LVOT VTI: 15.26 cm MV A Kimani: 0.46 m/s | | | MV Dec Oscoda: 6.39 m/s2 MV DecT: 136.62 ms MV E Kimani: | | | 0.87 m/s MV E/A Ratio: 1.86 MV PHT: 39.62 ms MVA By | | | PHT: 5.55 cm2 Septal e': 0.03 m/s Septal E/e': 25.15 | | | Lateral e': 0.09 m/s Lateral E/e': 8.73 RAP: 20 mmHg | | | RV S': 0.09 m/s RVSP: 62.21 mmHg TR maxP.21 mmHg | | | TR Vmax: 3.24 m/s Respiratory Therapy Assistant: MALIHA Authenticated | | | by: Yazan Bo MD Report Date/Time: 06-15-2018 18:11:23 | | + + + + + | Procedure Note | + + | Rafael Morrissey In - 06/15/2018 6:20 PM PDT Patient Name: Fabien Alex | | of : 1945ccession: [id number] Physician: Yazan Bo MD | | INDICATIONS dys | | pneaCONCLUSIONS 1. The left ventricle is normal in size, mild concentric | | hypertrophy and severely impaired systolic function EF 25-30%.2. The right ventricle is | | mildly enlarged with impaired systolic function.3. Severe tricuspid regurgitation and | | moderate to severe pulmonary hypertension RVSP 62 mmHg.4. There is no pericardial | | effusion.5. Compared to the findings of the prior study, left ventricular systolic | | function has deteriorated.FINDINGS--------ECG rhythm: Sinus rhythm.Study: A | | 2-dimensional transthoracic echocardiogram with m-mode, spectral and color flow Doppler | | was perfomed. Study: This was a technically adequate study.Left Ventricle: Overall left | | ventricular systolic function is severely impaired with, an EF between 25 - 30 %. Left | | Ventricle: The left ventricle cavity size is normal. Left Ventricle: There is mild | | concentric left ventricular hypertrophy. Left Ventricle: There is severe global | | hypokinesis of LV contractility. Left Ventricle: Restrictive LV diastolic filling | | pattern, consistent with elevated LA pressure and severe dysfunction (grade III).Right | | Ventricle: The right ventricle is mildly enlarged. Right Ventricle: The right | | ventricular systolic function is moderately impaired.Left Atrium: The left atrium is | | mildly enlarged.Right Atrium: The right atrium is markedly enlarged.Aortic Valve: Aortic | | valve is mildly thickened. Aortic Valve: The aortic valve appears to be trileaflet. | | Aortic Valve: The aortic valve is mildly calcified. Aortic Valve: Trace amount of aortic | | regurgitation. Aortic Valve: There is no evidence of aortic stenosis.Mitral Valve: | | Mild mitral regurgitation is present. Mitral Valve: Mild mitral annular calcification | | present.Tricuspid Valve: The tricuspid valve appears structurally normal. Tricuspid | | Valve: Severe tricuspid regurgitation present. Tricuspid Valve: There is moderate to | | severe pulmonary hypertension. Tricuspid Valve: The right ventricular systolic pressure | | (pulmonary artery systolic pressure), as measured by Doppler, is 62.22mmHg.Pulmonic | | Valve: The pulmonic valve is normal. Pulmonic Valve: Trace pulmonic | | regurgitation.Pericardium: There is no pericardial effusion. Pericardium: No pleural | | effusion seen.IVC/Hepatic Veins: The IVC is dilated (>2.5cm) and collapses <50% with | | sniff, consistent with central venous pressures of 15-20mmHg.Aorta: The Sinus of | | Valsalva [address] mm, [address] Junction 41 mm and ascending aorta 40 mm are dilated.General | | comments: Compared to the findings of the prior study, left ventricular systolic | | function has deteriorated.MEASUREMENTS Ao asc: 4.00 cmAo Diam: 3.74 cmAo | | sinus: 4.[address] junct: 4.12 cmIVC: 3.01 cmEDV(Teich): 135.16 mlIVSd: 1.29 | | cmLVIDd: 5.29 cmLVPWd: 1.31 cmLVOT Area: 3.98 cm6QSDN Diam: 2.25 cm%FS: 17.04 | | %EF(Teich): 35.33 %ESV(Teich): 87.40 mlLVIDs: 4.39 cmSV(Teich): 47.75 mlRV | | Major: 9.28 cmRV Minor: 4.82 cmRVIDd: 3.74 cmLVEF MOD A2C: 32.09 %SV MOD A2C: | | 51.24 mlLVEF MOD A4C: 35.16 %SV MOD A4C: 67.69 mlEF Biplane: 33.80 %LVEDV MOD BP: | | 175.80 mlLVESV MOD BP: 116.37 mlLVEDV MOD A2C: 159.66 mlLVLd A2C: 9.89 cmLVEDV | | MOD A4C: 192.51 mlLVLd A4C: 10.05 cmLVESV MOD A2C: 108.42 mlLVLs A2C: 9.21 | | cmLVESV MOD A4C: 124.82 mlLVLs A4C: 9.18 cmLAESV(A-L): 87.49 mlLAESV Index (A-L): | | 40.69 ml/m2LAAs A2C: 25.94 [id number] A-L A2C: 88.53 mlLALs A2C: 6.45 cmLAAs A4C: | | 25.60 [id number] A-L A4C: 86.33 mlLALs A4C: 6.44 cmRAAs: 28.17 [id number] A-L: | | 98.31 mlRAESV MOD: 96.39 mlRALs: 6.85 cmTAPSE: 1.55 cmAV maxP.29 mmHgAV | | meanP.40 mmHgAV Vmax: 1.35 m/Kelvin Vmean: 0.84 m/Kelvin VTI: 23.87 cmAVA Vmax: | | 2.45 cm2AVA (VTI): 2.54 [id number] Vmax: 0.00 cm2/m2AVAI (VTI): 0.00 cm2/m2LVOT | | maxP.75 mmHgLVOT meanP.34 mmHgLVSI Dopp: 28.31 ml/m2LVSV Dopp: 60.87 | | mlLVOT Vmax: 0.83 m/sLVOT Vmean: 0.55 m/sLVOT VTI: 15.26 cmMV A Kimani: 0.46 m/sMV | | Dec Oscoda: 6.39 m/s2MV DecT: 136.62 msMV E Kimani: 0.87 m/sMV E/A Ratio: 1.86 MV | | PHT: 39.62 msMVA By PHT: 5.55 bg3Odvtiv e': 0.03 m/sSeptal E/e': 25.15 Lateral | | e': 0.09 m/sLateral E/e': 8.73 RAP: 20 mmHgRV S': 0.09 m/sRVSP: 62.21 mmHgTR | | maxP.21 mmHgTR Vmax: 3.24 m/sSonographer: DBSAuthenticated by: Anupam, | | [facility] Date/Time: 06-15-2018 18:11:23IMPRESSION:1. The left ventricle is normal | | in size, mild concentric hypertrophy and severely impaired systolic function EF | | 25-30%.2. The right ventricle is mildly enlarged with impaired systolic function.3. | | Severe tricuspid regurgitation and moderate to severe pulmonary hypertension RVSP 62 | | mmHg.4. There is no pericardial effusion.5. Compared to the findings of the prior study, | | left ventricular systolic function has deteriorated. | |IVC: 3.01 cm | |EDV(Teich): 135.16 ml | |IVSd: 1.29 cm | |LVIDd: 5.29 cm | |LVPWd: 1.31 cm | |LVOT Area: 3.98 cm2 | |LVOT Diam: 2.25 cm | |%FS: 17.04 % | |EF(Teich): 35.33 % | |ESV(Teich): 87.40 ml | |LVIDs: 4.39 cm | |SV(Teich): 47.75 ml | |RV Major: 9.28 cm | |RV Minor: 4.82 cm | |RVIDd: 3.74 cm | |LVEF MOD A2C: 32.09 % | |SV MOD A2C: 51.24 ml | |LVEF MOD A4C: 35.16 % | |SV MOD A4C: 67.69 ml | |EF Biplane: 33.80 % | |LVEDV MOD BP: 175.80 ml | |LVESV MOD BP: 116.37 ml | |LVEDV MOD A2C: 159.66 ml | |LVLd A2C: 9.89 cm | |LVEDV MOD A4C: 192.51 ml | |LVLd A4C: 10.05 cm | |LVESV MOD A2C: 108.42 ml | |LVLs A2C: 9.21 cm | |LVESV MOD A4C: 124.82 ml | |LVLs A4C: 9.18 cm | |LAESV(A-L): 87.49 ml | |LAESV Index (A-L): 40.69 ml/m2 | |LAAs A2C: 25.94 cm2 | |LAESV A-L A2C: 88.53 ml | |LALs A2C: 6.45 cm | |LAAs A4C: 25.60 cm2 | |LAESV A-L A4C: 86.33 ml | |LALs A4C: 6.44 cm | |RAAs: 28.17 cm2 | |RAESV A-L: 98.31 ml | |RAESV MOD: 96.39 ml | |RALs: 6.85 cm | |TAPSE: 1.55 cm | |AV maxP.29 mmHg | |AV meanP.40 mmHg | |AV Vmax: 1.35 m/s | |AV Vmean: 0.84 m/s | |AV VTI: 23.87 cm | |OLIVIA Vmax: 2.45 cm2 | |OLIVIA (VTI): 2.54 cm2 | |AVAI Vmax: 0.00 cm2/m2 | |AVAI (VTI): 0.00 cm2/m2 | |LVOT maxP.75 mmHg | |LVOT meanP.34 mmHg | |LVSI Dopp: 28.31 ml/m2 | |LVSV Dopp: 60.87 ml | |LVOT Vmax: 0.83 m/s | |LVOT Vmean: 0.55 m/s | |LVOT VTI: 15.26 cm | |MV A Kimani: 0.46 m/s | |MV Dec Oscoda: 6.39 m/s2 | |MV DecT: 136.62 ms | |MV E Kimani: 0.87 m/s | |MV E/A Ratio: 1.86 | |MV PHT: 39.62 ms | |MVA By PHT: 5.55 cm2 | |Septal e': 0.03 m/s | |Septal E/e': 25.15 | |Lateral e': 0.09 m/s | |Lateral E/e': 8.73 | |RAP: 20 mmHg | |RV S': 0.09 m/s | |RVSP: 62.21 mmHg | |TR maxP.21 mmHg | |TR Vmax: 3.24 m/s | | | |Respiratory Therapy Assistant: DBS | |Authenticated by: Yazan Bo MD | |Report Date/Time: 06-15-2018 18:11:23 | | | |IMPRESSION: | |1. The left ventricle is normal in size, mild concentric hypertrophy and severely impaired systolic function EF 25-30%. | |2. The right ventricle is mildly enlarged with impaired systolic function. | |3. Severe tricuspid regurgitation and moderate to severe pulmonary hypertension RVSP 62 mmH g. | |4. There is no pericardial effusion. | |5. Compared to the findings of the prior study, left ventricular systolic function has dete riorated. | + + + + + + + | Performing | Address | City/State/Zipcode | Phone Number | | Organization | | | | + + + + + | [facility] | [address] | [place] [address] | | + + + + + in this encounter Visit Diagnoses + + | Diagnosis | + + | Dyspnea, unspecified type | + +"
--- OUTSIDE RECORDS SUMMARY | ~2018-07-28 | XMS | Encounter Summary ---
Demographics + + + | Address | [address] [place] [address] | | | [place] [address] | + + + | Home Phone | | + + + | Preferred Language | Unknown | + + + | Marital Status | Unmarried Domestic Partner | + + + | Amish Affiliation | Unknown | + + + | Race | or | + + + | Ethnic Group | Not or | + + + Author + + + | Author | [place] [employer] [facility] | + + + | Organization | [facility] [employer] [facility] | + + + | Address | Unknown | + + + | Phone | Unavailable | + + + Support + + +---------+ + | Name | Relationship | Address | Phone | + + +---------+ + | Betty Conner | ECON | Unknown | | + + +---------+ + Care Team Providers + +------+ + | Care Apprenticeship Training Representative Name | Role | Phone | + [...] | on | Coordinators [address] | [place], [place] | | | | | [address] | [address] | | | | | [address] [place], [place] | | | | | | [address] | | | | | | [phone] | | | +--------+ + + + [...]
--- OUTSIDE RECORDS SUMMARY | ~2018-07-28 | XMS | Encounter Summary ---
Demographics + + + | Address | [address] [place] [address] | | | [place] [address] | + + + | Home Phone | | + + + | Preferred Language | Unknown | + + + | Marital Status | Unmarried Domestic Partner | + + + | Judaism Affiliation | Unknown | + + + | Race | or | + + + | Ethnic Group | Not or | + + + Author + + + | Author | [facility] | + + + | Organization | [facility] | + + + | Address | Unknown | + + + | Phone | Unavailable | + + + Support + + +---------+ + | Name | Relationship | Address | Phone | + + +---------+ + | Betty Conner | ECON | Unknown | | + + +---------+ + Care Team Providers + +------+ + | Care Meteorological Engineer Name | Role | Phone | + +------+ + | Clifton Stevens MD | PCP | | + +------+ + Encounter Details +--------+ + + + + | Date | Type | Department | Care Team | Description | +--------+ + + + + | 04/01/ | Lab | [facility] | | | | 2017 | Requisition | [facility] | | | | | | [address] | | | | | | [place] | | | | | | [place], [place] | | | | | | [address] | | | +--------+ + + + [...] Not on filedocumented as of this encounter Procedures + +--------+ + + + | Procedure Name | Priori | Date/Time | Associated Diagnosis | Comments | | | ty | | | | + +--------+ + + + | HLA VA KIDNEY | Routin | 04/01/2017 | | Results for this | | RECIPIENT PANEL | e | 10:40 AM | | procedure are in the | | | | PST | | results section. | + +--------+ + + + | LIT FLOW HLA AB PRA | Routin | 04/01/2017 | | | | SCREEN I/II | e | 10:40 AM | | | | | | PST | | | + +--------+ + + + | LIT HLA-B LOW RES | Routin | 04/01/2017 | | | | | e | 10:40 AM | | | | | | PST | | | + +--------+ + + + | LIT HLA-A LOW RES | Routin | 04/01/2017 | | | | | e | 10:40 AM | | | | | | PST | | | + +--------+ + + + | LIT RBC GROUP - [place], | Routin | 04/01/2017 | | | | BLOOD | e | 10:40 AM | | | | | | PST | | | + +--------+ + + + | LIT-HLA-DR LOW RES | Routin | 04/01/2017 | | Results for this | | | e | 10:40 AM | | procedure are in the | | | | PST | | results section. | + +--------+ + + + documented in this encounter Results LIT FLOW HLA AB PRA SCREEN I/II (04/01/2017 10:40 AM PST) + + | Specimen | + + | Blood | + + + + + + + | Performing | Address | City/State/Zipcode | Phone Number | | Organization | | | | + + + + + | [facility] - | [address] | [place], [place] [address] | | | IMMUNOGENETICS[facility]TRANS | [address] | | | | [facility] | | | | + + + + + LIT-HLA-DR LOW RES (04/01/2017 10:40 AM PST) + + + + + + | Component | Value | Ref Range | Performed | Pathologist | | | | | At | Signature | + + + + + + | LABEL ONLY | Please see lab report | | [facility] - | | | - LIT | for result. | | [facility] | | | | | | ICS/TRANSPL | | | | | | ANT | | | | | | LABORATORY | | + + + + + + + + | Specimen | + + | Blood | + + + + + + + | Performing | Address | City/State/Zipcode | Phone Number | | Organization | | | | + + + + + | [facility] - | [address] | [place] [address] | | | IMMUNOGENETICS/TRANS | [address] | | | | [facility] | | | | + + + + + LIT HLA-B LOW RES (04/01/2017 10:40 AM PST) + + | Specimen | + + | Blood | + + + + + + + | Performing | Address | City/State/Zipcode | Phone Number | | Organization | | | | + + + + + | [facility] - | [address] | [place], [place] | | | IMMUNOGENETICS[facility]TRANS | [address] | | | | [facility] | | | | + + + + + LIT HLA-A LOW RES (04/01/2017 10:40 AM PST) + + | Specimen | + + | Blood | + + + + + + + | Performing | Address | City/State/Zipcode | Phone Number | | Organization | | | | + + + + + | [facility] - | [address] | [place], [place] | | | IMMUNOGENETICS[facility]TRANS | [address] | | | | [facility] | | | | + + + + + LIT RBC GROUP - [place], BLOOD (04/01/2017 10:40 AM PST) + + | Specimen | + + | Blood | + + + + + + + | Performing | Address | City/State/Zipcode | Phone Number | | Organization | | | | + + + + + | [facility] - | [address] | [place] [address] | | | IMMUNOGENETICS/TRANS | [address] | | | | [facility] | | | | + + + + + documented in this encounter Visit Diagnoses Not on filedocumented in this encounter"
--- OUTSIDE RECORDS SUMMARY | ~2018-07-28 | XMS | Encounter Summary ---
Demographics + + + | Address | [address] | | | [place] [address] | + + + | Home Phone | | + + + | Preferred Language | Unknown | + + + | Marital Status | Unknown | + + + | Mu-Ism Affiliation | 1077 | + + + | Race | Unknown | + + + | Ethnic Group | Unknown | + + + Author + + + | Author | [email or web address] | + + + | Organization | [facility] | + + + | Address | Unknown | + + + | Phone | Unavailable | + + + Support + + +---------+ + | Name | Relationship | Address | Phone | + + +---------+ + | Betty Conner | ECON | Unknown | | + + +---------+ + Care Team Providers + +------+ + | Care Shrinking Machine Operator Name | Role | Phone | + +------+ + | Clifton Stevens MD | PCP | | + +------+ + Encounter Details +--------+ + + + + | Date | Type | Department | Care Team | Description | +--------+ + + + + | 06/15/ | Ancillary | [facility] | Ruby Manley FNP | Dyspnea, unspecified | | 2019 | Orders | ECHO | [address] | type | | | | | [place] | | | | | | [id number] | | | | | | | [...] | | | | | | [place] [address] | | | | | | [phone] | | | | | | | [...] Patient Name: Sj Alex Date of | [facility] | | : 1945 Performing [...] 0.46 m/s | | | MV Dec [place]: 6.39 m/s2 MV DecT: 136.62 ms MV [...] | | | TR Vmax: 3.24 m/s Autocutter: MALIHA Authenticated | | | by: Yazan Bo MD Report Date/Time: 06-15-2018 18:11:23 | | + + + + + | Procedure Note | + + | Ghanshyam, Rad Results In - 06/15/2018 6:20 PM PDT Patient Name: Fabien Alex | | of : 1945ccession: [id number] Physician: Yazan Bo MD | | INDICATIONS [...] cmLVIDd: 5.29 cmLVPWd: 1.31 cmLVOT Area: 3.98 [id number] Diam: 2.25 cm%FS: 17.04 | | %EF(Teich): [...] (A-L): | | 40.69 ml/m2LAAs A2C: 25.94 [id number] A-L A2C: 88.53 mlLALs A2C: 6.45 cmLAAs A4C: | | 25.60 rd0LUUEX A-L A4C: 86.33 mlLALs A4C: 6.44 cmRAAs: 28.17 [id number] A-L: | | 98.31 mlRAESV MOD: 96.39 mlRALs: 6.85 cmTAPSE: 1.55 cmAV maxP.29 mmHgAV | | meanP.40 mmHgAV Vmax: 1.35 m/Kelvin Vmean: 0.84 m/Kelvin VTI: 23.87 cmAVA Vmax: | | 2.45 cm2AVA (VTI): 2.54 kf2XCWS Vmax: 0.00 cm2/m2AVAI (VTI): 0.00 cm2/m2LVOT | | maxP.75 mmHgLVOT meanP.34 mmHgLVSI Dopp: 28.31 ml/m2LVSV Dopp: 60.87 | | mlLVOT Vmax: 0.83 m/sLVOT Vmean: 0.55 m/sLVOT VTI: 15.26 cmMV A Kimani: 0.46 m/sMV | | Dec [place]: 6.39 m/s2MV DecT: 136.62 msMV E Kimani: 0.87 m/sMV E/A Ratio: 1.86 MV | | PHT: 39.62 msMVA By PHT: 5.55 gp8Hzttpv e': 0.03 m/sSeptal E/e': 25.15 Lateral | | e': 0.09 m/sLateral E/e': 8.73 RAP: 20 mmHgRV S': 0.09 m/sRVSP: 62.21 mmHgTR | | maxP.21 mmHgTR Vmax: 3.24 m/sSonographer: DBSAuthenticated by: Anupam | | Yazan MDReport Date/Time: 06-15-2018 18:11:23IMPRESSION:1. The left ventricle [...] A Kimani: 0.46 m/s | |MV Dec [facility]: 6.39 m/s2 | |MV DecT: 136.62 ms [...] |TR Vmax: 3.24 m/s | | | |Autocutter: DBS | |Authenticated by: Yazan Bo MD [...] | + + + + + | [facility] | [address] | [place] [address] | | + + + + + in this encounter Visit Diagnoses + + | Diagnosis | + + | Dyspnea, unspecified type | + +"
--- OUTSIDE RECORDS SUMMARY | ~2018-07-28 | XMS | Clinical Summary ---
Demographics + + + | Address | [address] [place] [address] | | | [place] [address] | + + + | Home Phone | | + + + | Preferred Language | Unknown | + + + | Marital Status | Unmarried Domestic Partner | + + + | Alevism Affiliation | Unknown | + + + | Race | or | + + + | Ethnic Group | Not or | + + + Author + + + | Author | [facility] | + + + | Organization | [facility] | + + + | Address | Unknown | + + + | Phone | Unavailable | + + + Support + + +---------+ + | Name | Relationship | Address | Phone | + + +---------+ + | Betty Conner | ECON | Unknown | | + + +---------+ + Care Team Providers + +------+ + | Care Music Historian Name | Role | Phone | + +------+ + | Clifton Stevens MD | PP | | + +------+ + Source Comments SANJAY is fully live on both [facility] Ambulatory and [facility] InPatient[facility] Allergies Not on File Medications Not on file Active Problems + + + | Problem | Noted Date | + + + | Hypertensive renal disease with renal failure | | + + + + + | Overview: 2728 diagnosis | + + Social History + +-------+ +--------+------+ [...] recent travel history available. | + + Plan of Treatment + + + + + | Health Maintenance | Due Date | Last Done | Comments | + + + + + | Pneumococcal (Adult) | | | | | (1 of 2 - PCV13) | 1 | | | + + + + + | Influenza (Flu) | | | | | vaccination (Season | 9 | | | | Ended) | | | | + + + + + Results Not on filefrom Last 3 Months Insurance + +--------+ +--------+ + +--------+ | Payer | Benefi | Subscriber | Effect | Phone | Address | Type | | | t Plan | ID | miguel | | | | | | / | | Dates | | | | | | Group | | | | | | + +--------+ +--------+ + +--------+ | MEDICARE | MEDICA | xxxxxxxxxx | Effect | [phone] | [address] | [address] | | | RE A & | | miguel | [phone] | [address] | | | [address] | | for | | [place] | | | | | | all | | [id number] | | | | | | dates | | | | + +--------+ +--------+ + +--------+ | [facility] | [facility] | [phone] | | | | Agency | | SERVICE | | | [phone] | | | | | | HEALTH | | esent | | | | | | | | | | | | | | SERVIC | | | | | | | | E | | | | | | + +--------+ +--------+ + +--------+ + +--------+ +--------+ + + | Guarantor Name | Accoun | Relation to | Date | Phone | Billing Address | | | t Type | Patient | of | | | | | | | | | | + +--------+ +--------+ + + | jS Alex | Person | Self | [birth year] | [address] | | A | al/Fam | | 1946 | [phone] | [place] | | | [place] | | | 3 (Home) | [address] | | | | | | [phone] | | | | | | | 1 (Work) | | + +--------+ +--------+ + +"
--- OUTSIDE RECORDS SUMMARY | ~2018-07-28 | XMS | Clinical Summary ---
Demographics + + + | Address | [address] | | | [place] [address] | + + + | Home Phone | | + + + | Preferred Language | Unknown | + + + | Marital Status | Unknown | + + + | Yazidi Affiliation | 1077 | + + + | Race | Unknown | + + + | Ethnic Group | Unknown | + + + Author + + + | Author | [facility] | + + + | Organization | [facility] | + + + | Address | Unknown | + + + | Phone | Unavailable | + + + Support + + +---------+ + | Name | Relationship | Address | Phone | + + +---------+ + | Betty Conner | ECON | Unknown | | + + +---------+ + Care Team Providers + +------+ + | Care Office Clerk Name | Role | Phone | + +------+ + | Clifton Stevens MD | PP | | + +------+ + Allergies No Known Allergies Current Medications + + +--------+---------+------+------+-------+ | Prescription | Sig. | Disp. | Refills | Star | End | Statu | | | | | | t | Date | s | | | | | | Date | | | + + +--------+---------+------+------+-------+ | furosemide (LASIX) | Take 80 mg by mouth | | | | | Activ | | 80 MG tablet | daily. | | | | | e | + + +--------+---------+------+------+-------+ | traMADol (ULTRAM) | Take 50 mg by mouth | | | | | Activ | | 50 MG tablet | every 6 (six) hours | | | | | e | | | as needed for Pain. | | | | | | + + +--------+---------+------+------+-------+ | b complex-vitamin | Take 0.8 mg by mouth | | | | | Activ | | c-folic acid | daily. | | | | | e | | (NEPHRO-HANNA) 0.8 MG | | | | | | | | TABS tablet | | | | | | | + + +--------+---------+------+------+-------+ | sevelamer | Take 1,600 mg by | | | | | Activ | | (RENVELA) 800 MG | mouth 3 (three) | | | | | e | | tablet | times daily with | | | | | | | | meals. | | | | | | + + +--------+---------+------+------+-------+ | losartan (COZAAR) | Take 1 tablet by | 90 | 2 | 09/0 | | Activ | | 50 MG tablet | mouth daily. | tablet | | 5/20 | | e | | | | | | 17 | | | + + +--------+---------+------+------+-------+ | SUCROFERRIC | Take 500 mg by mouth | | | | | Activ | | OXYHYDROXIDE PO | 3 (three) times | | | | | e | | | daily before meals. | | | | | | | | 1 tablet TID AC, and | | | | | | | | 1 tablet BID with | | | | | | | | snacks | | | | | | + + +--------+---------+------+------+-------+ | metoprolol | Take 1 tablet by | 90 | 2 | 03/2 | | Activ | | (TOPROL-XL) 25 MG 24 | mouth daily. | tablet | | 1/20 | | e | | hr tablet | | | | 18 | | | + + +--------+---------+------+------+-------+ | hydrALAZINE | Take 1 tablet by | 120 | 2 | 03/2 | | Activ | | (APRESOLINE) 50 MG | mouth 2 (two) times | tablet | | 1/20 | | e | | tablet | daily. 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 | | 69yo NAIM, with exertional shortness of breath, no | | significant symptoms at rest. There is no orthopnea, PND, or | | significant edema. Denies any significant chest discomfort. | | However he does have history of congestive heart failure, most | | likely due to volume overload. Cardiac workup led to coronary | | angiogram, high grade lesion mid-LAD stented, he tolerated | | procedure well. History of end-stage renal disease, hemodialysis | | (about 4 years), followed by Dr Franklin. Decreasing activity, | | increasing pain in his right hip, considering surgical | | replacement, however he will be on dual antiplatelet therapy for | | a minimum of 6 months, preferably a year, however, at 6 months | | we'll consider suspending Plavix in order for him to have surgery | | if hip pain is still significant. We plan to repeat Echo in a | | few months. Hx CABG: noHx PCI/stent: 06/07/2015, mid-LAD (3.0*20mm | | Promus Premier APOLLO).Hx Pacemaker/ICD: noLast Cath, 06/07/2015: | | left main OK, 20-30% osteal LAD, 70% mid-LAD, LCx OK, 40% | | mid-RCA. LAD FFR 0.72, LAD stented.Last Echo, ([facility] | | [facility]): moderate concentric LVH, biplane LVEF 42%, moderate | | LAE, moderate RVE, trace AI, trace MR, mild TR, trade PI, est | | systolic PAP 33-38mmHg, Ascending Aorta 41mm.Last Stress Test, | | 05/17/2015 ([facility]): Lexiscan, global hypokinesis, LVEF | | 37%.ECG, 06/08/2015: sinus rhythm, 50bpm, 1st degree AVB, | | RBBB/LAFB. | + + + + + | Iron deficiency | 04/14/2011 | + + + | Essential hypertension, malignant | 03/24/2011 | + + + + + | Last Assessment & Plan: Hypertension, controlled, continue | | current meds at current dose (amlodipine, clonidine, furosemide). | + + + + + | Nephrotic range proteinuria | 03/24/2011 | + + + | Vitamin D deficiency | 03/24/2011 | + + + | Dyslipidemia | 03/24/2011 | + + + | Secondary hyperparathyroidism (HCC) | 03/24/2011 | + + + Resolved Problems + + + + | Problem | Noted | Resolved | | | Date | Date | + + + + | CHF (congestive heart failure) | 04/11/19 | | | | 16 | 7 | + + + + + + | Last Assessment & Plan: CHF. 69yo JERMAIN, with | | exertional shortness of breath, no significant symptoms at rest. | | There is no orthopnea, PND, or significant edema. Denies any | | significant chest discomfort. However he does have history of | | congestive heart failure, most likely due to volume overload. | | History of hypertension, BP is well controlled. History of | | end-stage renal disease, hemodialysis (about 4 years), followed | | by Dr Franklin. No history of diabetes or CVA. Recent ECG, labs, | | echocardiogram, and nuclear perfusion study reviewed. Decreasing | | activity, increasing pain in his right hip, considering surgical | | replacement. Because of his need for dialysis, it has been | | suggested that he have his hip replacement in a hospital that has | | inability for in-hospital dialysis, this [facility] be [facility]. He will | | need to find an orthopedic surgeon who is willing to do the | | surgery. His LVEF is reduced for reasons not entirely clear, I | | would like to have him undergo coronary angiography before | | surgery. Will discuss this with Dr. Franklin.Hx CABG: noHx | | PCI/stent: noHx Pacemaker/ICD: noLast Cath: naLast Echo, | | ([facility]): moderate concentric LVH, biplane LVEF | | 42%, moderate LAE, moderate RVE, trace AI, trace MR, mild TR, | | trade PI, est systolic PAP 33-38mmHg, Ascending Aorta 41mm.Last | | Stress Test, 05/17/2015 ([facility]): Lexiscan, global | | hypokinesis, LVEF 37%.ECG, 03/18/2015 ([facility]): sinus | | rhythm, 77bpm, RBBB/LAFB. | + + + + + + | Metabolic acidemia | 04/14/19 | | | | 12 | 8 | + + + + | CKD (chronic kidney disease), stage IV | 03/24/19 | | | | 12 | 8 | + + + + + + | Last Assessment & Plan: ESRD, hemodialysis, followed by | | Labs, 06/08/2015: K: 5.3, BUN/Cr: 61/7.5, glu: 86 | | WBC: 5.6, H/H: 11.5/335.0, plt: 212 | + + + + + + | Anemia of chronic renal failure | 03/24/19 | | | | 12 | 7 | + + + + Encounters +--------+ + + + + | Date | Type | Specialty | Care Team | Description | +--------+ + + + + | 07/16/ | Documentati | | Josh Franklin MD | Other (June | on Only | | | 2018-Areli Provider | | | | | | Dialysis Rounding | | | | | | Note) | +--------+ + + + + | 06/16/ | Documentati | | Josh Franklin MD | Other (May | on Only | | | 2018-Areli Provider | | | | | | Dialysis Rounding | | | | | | Note) | +--------+ + + + + | 06/15/ | Ancillary | | Ruby Manley FNP | Dyspnea, unspecified | | 2018 | Procedure | | | type | +--------+ + + + + | 06/15/ | Ancillary | | Ruby Manley FNP | Dyspnea, unspecified | | 2019 | Orders | | | type | +--------+ + + + + | 06/15/ | Ancillary | | Ruby Manley FNP | | | 2018 | Orders | | | | +--------+ + + + + | 05/25/ | Documentati | | Felisha Mcpherson | Other ([facility] | 2018 | on Only | | LAVELLE Pitt | medication refill ) | +--------+ + + + + | 05/14/ | Documentati | | Josh Franklin MD | Other (April | 2018 | on Only | | | 2019-Areli Connors | | | | | | Hilda Roundnguyễn | | | | | | Note) | +--------+ + + + + | 05/06/ | Ancillary | | Clifton Stevens MD | Congestive heart | | 2018 | Procedure | | | failure, unspecified | | | | | | HF chronicity, | | | | | | unspecified heart | | | | | | failure type (HCC) | +--------+ + + + + | 05/06/ | Ancillary | | Clifton Stevens MD | Congestive heart | | 2019 | Orders | | | failure, unspecified | | | | | | HF chronicity, | | | | | | unspecified heart | | | | | | failure type (HCC) | +--------+ + + + + from Last 3 Months Immunizations + + + + | Name | Dates Previously Given | Next Due | + + + + | Pneumococcal | 02/08/2016 | | | Polysaccharide | | | | 23-valent | | | + + + + Family History + + +------+ + | Medical History | Relation | Name | Comments | + + +------+ + | Heart disease | Father | | | + + +------+ + | Diabetes type II | Mother | | | + + +------+ + | Heart disease | Mother | | | + + +------+ + + +------+ + + | Relation | Name | Status | Comments | + +------+ + + | Father | | | CHF, heart disease | | | | (Age | | | | | 95) | | + +------+ + + | Mother | | | heart disease, DMII, HTN | | | | (Age | | | | | 76) | | + +------+ + + Social History + + + [...] on file | | + + + Last Filed Vital Signs + + + + | Vital Sign | Reading | Time Taken | + + + + | Blood Pressure | 132/64 | 05/27/2017 3:26 PM PDT | + + + + | Pulse | 92 | 05/27/2017 3:26 PM PDT | + + + + | Temperature | 36.5 C (97.7 F) | 06/08/2015 3:53 AM PDT | + + + + | Respiratory Rate | 18 | 06/20/2015 3:57 PM PDT | + + + + | Oxygen Saturation | 96% | 05/27/2017 3:26 PM PDT | + + + + | Inhaled Oxygen | - | - | | Concentration | | | + + + + | Weight | 97.9 kg (215 lb 14.4 | 05/27/2017 3:26 PM PDT | | | oz) | | + + + + | Height | 180.3 cm (5' 11") | 05/27/2017 3:26 PM PDT | + + + + | Body Mass Index | 30.11 | 05/27/2017 3:26 PM PDT | + + + + Plan of Treatment +--------+---------+ + + + | Date | Type | Specialty | Care Team | Description | +--------+---------+ + + + | 08/04/ | Office | | Yazan Bo, | | | 2019 | Visit | | MD Colin Levin | | | | | | Dr Yu, | | | | | | [place] [address] | | | | | | [phone] | | | | | | | | +--------+---------+ + + + + + + + + | Health Maintenance | Due Date | Last Done | Comments | + + + + + | Vaccine: | | | | | Dtap/Tdap/Td (1 - | 5 | | | | Tdap) | | | | + + + + + | Colon Cancer | | | | | Screening | 6 | | | | (Colonoscopy) | | | | + + + + + | Vaccine: Zoster (1 | | | | | of 2) | 6 | | | + + + + + | Vaccine: | | 02/08/2016 | | | Pneumococcal 65+ | 7 | | | | High/Highest Risk (2 | | | | | of 2 - PCV13) | | | | + + + + + | Vaccine: Influenza | | | | | (Season Ended) | 9 | | | + + + + + Procedures + +--------+ + + + | [...] | | + +--------+ + + + from Last 3 Months Results ECHO outside interpretation standard (06/15/2018 12:49 [...] | + + + | Patient Name: Ella Alex Date of | [facility] | | : 1945 Performing [...] 0.46 m/s | | | MV Dec Dillon: 6.39 m/s2 MV DecT: 136.62 ms MV [...] | | | TR Vmax: 3.24 m/s Head Of Business Development: MALIHA Authenticated | | | by: Yazan Bo MD Report Date/Time: 06-15-2018 18:11:23 | | + + + + + | Procedure Note | + + | Ghanshyam, Rafael Results In - 06/15/2018 6:20 PM PDT Patient Name: Fabien Alex | | of : 1945ccession: [id number] Physician: Yazan Bo MD | | INDICATIONS [...] cmLVIDd: 5.29 cmLVPWd: 1.31 cmLVOT Area: 3.98 iz3CDEY Diam: 2.25 cm%FS: 17.04 | | %EF(Teich): [...] (A-L): | | 40.69 ml/m2LAAs A2C: 25.94 [id number] A-L A2C: 88.53 mlLALs A2C: 6.45 cmLAAs A4C: | | 25.60 kt7LEGEU A-L A4C: 86.33 mlLALs A4C: 6.44 cmRAAs: 28.17 en5TTVBV A-L: | | 98.31 mlRAESV MOD: 96.39 mlRALs: 6.85 cmTAPSE: 1.55 cmAV maxP.29 mmHgAV | | meanP.40 mmHgAV Vmax: 1.35 m/Kelvin Vmean: 0.84 m/Kelvin VTI: 23.87 cmAVA Vmax: | | 2.45 cm2AVA (VTI): 2.54 xh4QEDE Vmax: 0.00 cm2/m2AVAI (VTI): 0.00 cm2/m2LVOT | | maxP.75 mmHgLVOT meanP.34 mmHgLVSI Dopp: 28.31 ml/m2LVSV Dopp: 60.87 | | mlLVOT Vmax: 0.83 m/sLVOT Vmean: 0.55 m/sLVOT VTI: 15.26 cmMV A Kimani: 0.46 m/sMV | | Dec Dillon: 6.39 m/s2MV DecT: 136.62 msMV E Kimani: 0.87 m/sMV E/A Ratio: 1.86 MV | | PHT: 39.62 msMVA By PHT: 5.55 gi6Mcyhtu e': 0.03 m/sSeptal E/e': 25.15 Lateral | [...] A Kimani: 0.46 m/s | |MV Dec Dillon: 6.39 m/s2 | |MV DecT: 136.62 ms [...] |TR Vmax: 3.24 m/s | | | |Head Of Business Development: DBS | |Authenticated by: Yazan Bo MD [...] | + + + + + | [facility] | [address] | [place] [address] | | + + + + + ECHO outside interpretation standard (05/06/2018 4:57 PM) [...] | + + + | Patient Name: Ella Alex Date of | [facility] | | : 1945 Performing | RADIOLOGY | | Physician: Yazan Bo | | | | | | INDICATIONS [...] MV A Kimani: 0.33 m/s MV Dec Dillon: 3.50 m/s2 | | | MV DecT: 140.55 ms MV E Kimani: 0.49 m/s MV E/A Ratio: | | | 1.45 E/E' Sept: 11.99 E' Lat: 0.07 m/s E' Sept: 0.04 | | | m/s RAP: 10 mmHg RVSP: 65.83 mmHg TR maxP.83 mmHg | | | TR Vmax: 3.73 m/s Head Of Business Development: Authenticated by: Yazan | | | [facility] Report Date/Time: 05-06-2018 19:38:26 | | + + + + + | Procedure Note | + + | Rafael Morrissey Results In 05/06/2018 7:40 PM PST Patient Name: Fabien Alex | | of : 1945ccession: [id number] Physician: Yazan | | [place] INDICATIONS------ | | -----CHFCONCLUSIONS 1. The left [...] mlLAESV Index (A-L): 44.82 ml/m2LAAs A2C: 24.58 sy9PLIOH A-L A2C: 85.82 | | mlLAESV MOD A2C: 84.22 mlLALs A2C: 5.97 cmLAAs A4C: 27.60 cs5ADDQQ A-L A4C: | | 99.51 mlLAESV MOD A4C: 87.03 mlLALs A4C: 6.49 cmRAAs: 21.69 zl8IFZSA A-L: 69.03 | | mlRAESV MOD: 66.90 mlRALs: 5.78 cmTAPSE: 1.63 cmAV Env.Ti: 265.67 msAV maxPG: | | 5.06 mmHgAV meanP.06 mmHgAV Vmax: 1.12 m/Kelvin Vmean: 0.82 m/Kelvin VTI: 21.86 | | cmAVA Vmax: 3.02 cm2AVA (VTI): 3.56 be9WXAG Vmax: 0.00 cm2/m2AVAI (VTI): 0.00 | | cm2/m2LVOT Env.Ti: 361.77 msLVOT maxP.17 mmHgLVOT meanP.07 mmHgLVSI Dopp: | | 36.24 ml/m2LVSV Dopp: 77.92 mlLVOT Vmax: 0.73 m/sLVOT Vmean: 0.46 m/sLVOT VTI: | | 16.90 cmMV A Kimani: 0.33 m/sMV Dec Dillon: 3.50 m/s2MV DecT: 140.55 msMV E Kimani: | | 0.49 m/sMV E/A Ratio: 1.45 E/E' Sept: 11.99 E' Lat: 0.07 m/sE' Sept: 0.04 | | m/sRAP: 10 mmHgRVSP: 65.83 mmHgTR maxP.83 mmHgTR Vmax: 3.73 m/sSonographer: | | Authenticated by: Yazan BoReport Date/Time: 05-06-2018 19:38:26IMPRESSION:1. The | | left [...] A Kimani: 0.33 m/s | |MV Dec Dillon: 3.50 m/s2 | |MV DecT: 140.55 ms | |MV E Kimani: 0.49 m/s | |MV E/A Ratio: 1.45 | |E/E' Sept: 11.99 | |E' Lat: 0.07 m/s | |E' Sept: 0.04 m/s | |RAP: 10 mmHg | |RVSP: 65.83 mmHg | |TR maxP.83 mmHg | |TR Vmax: 3.73 m/s | | | |Head Of Business Development: | |Authenticated by: Yazan Bo | |Report Date/Time: 05-06-2018 19:38:26 | | [...] | + + + + + | [facility] | [address] | [place] [address] | | + + + + + from Last 3 Months Insurance + +--------+ +------+ + + | Payer | Benefi | Subscriber | Type | Phone | Address | | | t Plan | ID | | | | | | / | | | | | | | Group | | | | | + +--------+ +------+ + + | MEDICARE | MEDICA | [id number] | | | [address] | | | RE | | | | [place] [id number] | | | IP-OP | | | | | + +--------+ +------+ + + | [place] | [id number] | | [phone] [employer]EE [employer] [id number] | | ADMINISTRATION | CHOICE | | | [phone] | | | | | | [address] [place], [place] | | | | | | | [phone] | + +--------+ +------+ + + | [facility] | YELLOW | [id number] | | | | | PLANS | [place] | | | | | + +--------+ +------+ + + + +--------+ +--------+ + + | Guarantor Name | Accoun | Relation to | Date | Phone | Billing Address | | | t Type | Patient | of | | | | | | | | | | + +--------+ +--------+ + + | ELLA ALEX | Person | Self [birth year] | Home: | [address] | | A | al/Fam | | 1946 | +- | [place] | | | [place]cca | | | [phone] | [phone] | + +--------+ +--------+ + + | ELLA ALEX | Vetera | Self | [birth year] | [address]: | [address] | | [place] | ns | | 1946 | +- | [place] | | | Admini | | | [phone] | [phone] | | | strati | | | | | | | on | | | | | + +--------+ +--------+ + +
--- OUTSIDE RECORDS SUMMARY | ~2018-07-28 | XMS | Encounter Summary ---
Demographics + + + | Address | [address] [place] [address] | | | [place] [address] | + + + | Home Phone | | + + + | Preferred Language | Unknown | + + + | Marital Status | Unmarried Domestic Partner | + + + | Druze Affiliation | Unknown | + + + | Race | or | + + + | Ethnic Group | Not or | + + + Author + + + | Author | [facility] | + + + | Organization | [facility] | + + + | Address | Unknown | + + + | Phone | Unavailable | + + + Support + + +---------+ + | Name | Relationship | Address | Phone | + + +---------+ + | Betty Conner | ECON | Unknown | | + + +---------+ + Care Team Providers + +------+ + | Care Veneer Sander Name | Role | Phone | + +------+ + | Clifton Stevens MD | PCP | | + +------+ + Reason for Visit + + + | Reason | Comments | + + + | Pre Transplant | Intake | | Workup | | + + + Encounter Details +--------+ + + + + | Date | Type | Department | Care Team | Description | +--------+ + + + + | 12/12/ | Telephone | Transplant | Inge Bautista, | Pre Transplant | | 2014 | | Coordinators [id number] | [address] | Workup (Intake) | | | | [address] | [facility] | | | | | [address] [place], [place] | [place], [place] | | | | | [address] | [id number] | | | | | [phone] | | | +--------+ + + + [...]
--- OUTSIDE RECORDS SUMMARY | ~2018-07-28 | XMS | Clinical Summary ---
Demographics + + + | Address | [address] [place] [address] | | | [place] [address] | + + + | Home Phone | | + + + | Preferred Language | Unknown | + + + | Marital Status | Unmarried Domestic Partner | + + + | Restorationist Affiliation | Unknown | + + + | Race | or | + + + | Ethnic Group | Not or | + + + Author + + + | Author | [facility] | + + + | Organization | [facility] | + + + | Address | Unknown | + + + | Phone | Unavailable | + + + Support + + +---------+ + | Name | Relationship | Address | Phone | + + +---------+ + | Betty Conner | ECON | Unknown | | + + +---------+ + Care Team Providers + +------+ + | Care Caregivers Homecare Name | Role | Phone | + +------+ + | Clifton Stevens MD | PP | | + +------+ + Source Comments SANJAY is fully live on both [facility] and [facility] InPatient.[facility] Allergies Not on File Medications Not on [...] | | | | all | | [address] | | | | | | dates | | | | + +--------+ +--------+ + +--------+ | [facility] | [facility] | xxxx | | | | Agency [...] | + +--------+ +--------+ + + | Sj Alex | Person | Self | [birth year] | [address] | | A | al/Fam | | 1946 | [phone] | [place] | | | becca | | | 3 (Home) | [address] | | | | | | [phone] | | | | | | | 1 (Work) | | + +--------+ +--------+ + +"
--- OUTSIDE RECORDS SUMMARY | ~2018-07-28 | XMS | Encounter Summary ---
Demographics + + + | Address | [address] | | | [place] [address] | + + + | Home Phone | | + + + | Preferred Language | Unknown | + + + | Marital Status | Unknown | + + + | Mosque Affiliation | 1077 | + + + | Race | Unknown | + + + | Ethnic Group | Unknown | + + + Author + + + | Author | [facility] | + + + | Organization | [facility] [employer] | + + + | Address | Unknown | + + + | Phone | Unavailable | + + + Support + + +---------+ + | Name | Relationship | Address | Phone | + + +---------+ + | Betty Conner | ECON | Unknown | | + + +---------+ + Care Team Providers + +------+ + | Care Regulatory Submissions Associate Name | Role | Phone | + +------+ + | Clifton Stevens MD | PCP | | + +------+ + Reason for Visit +--------+ + | Reason | Comments | +--------+ + | Other | [facility] medication refill | +--------+ + Encounter Details +--------+ + + + + | Date | Type | Department | Care Team | Description | +--------+ + + + + | 03// | Documentati | ARIANNE Villa | Felisha Mcpherson | Other ([facility] | | 2019 | on Only | Lisha Leonard | LAVELLE Pitt | medication refill ) | | | | [address] | | | | | | [place] | | | | | | [address] | | | | | | [phone] | | | +--------+ + + + [...] [place], | | | | | | [place] [address] | | | | | | [phone] | | | | | | | | +--------+---------+ + + + as of this encounter Visit Diagnoses Not on filein this encounter"
--- OUTSIDE RECORDS SUMMARY | ~2018-07-28 | XMS | Encounter Summary ---
Demographics + + + | Address | [address] | | | [place] [address] | + + + | Home Phone | | + + + | Preferred Language | Unknown | + + + | Marital Status | Unknown | + + + | Zoroastrian Affiliation | 1077 | + + + | Race | Unknown | + + + | Ethnic Group | Unknown | + + + Author + + + | Author | [facility] [employer] | + + + | Organization | [facility] [employer] | + + + | Address | Unknown | + + + | Phone | Unavailable | + + + Support + + +---------+ + | Name | Relationship | Address | Phone | + + +---------+ + | Betty Conner | ECON | Unknown | | + + +---------+ + Care Team Providers + +------+ + | Care Console Operator Name | Role | Phone | [...] [address] | [address] | 2019-[facility] Provider | | | | [address] | [address] [place], [place] | Dialysis Rounding | | | | [place] [address] | [address] | Note) | | | | [phone] | | | +--------+ + + + [...] | | | | | | [place] [address] | | | | | | [phone] | | | | | | | | +--------+---------+ + + + as of this encounter Visit Diagnoses Not on filein this encounter"
--- OUTSIDE RECORDS SUMMARY | ~2018-07-28 | XMS | Encounter Summary ---
Demographics + + + | Address | [address] [place] [address] | | | [place] [address] | + + + | Home Phone | | + + + | Preferred Language | Unknown | + + + | Marital Status | Unmarried Domestic Partner | + + + | Baptist Affiliation | Unknown | + + + | Race | or | + + + | Ethnic Group | Not or | + + + Author + + + | Author | [place] [facility] [facility] | + + + | Organization | [facility] | + + + | Address | Unknown | + + + | Phone | Unavailable | + + + Support + + +---------+ + | Name | Relationship | Address | Phone | + + +---------+ + | Betty Conner | ECON | Unknown | | + + +---------+ + Care Team Providers + +------+ + | Care Suppression Crew Leader Name | Role | Phone | + [...] | +--------+ + + + + | 01/19/ | Telephone | Transplant | Alvaro Mcbride | Financial Review | | 2015 | | Coordinators [address] | [place], [place] | | | | | [address] | [address] | | | | | Road [place], [place] | | | | | | [address] | | | | | | [phone] | | | +--------+ + + + [...]
--- OUTSIDE RECORDS SUMMARY | ~2018-07-28 | XMS | Encounter Summary ---
Demographics + + + | Address | [address] [place] [address] | | | [place] [address] | + + + | Home Phone | | + + + | Preferred Language | Unknown | + + + | Marital Status | Unmarried Domestic Partner | + + + | Jehovah'S Witness Affiliation | Unknown | + + + | Race | or | + + + | Ethnic Group | Not or | + + + Author + + + | Author | [place] [employer] [facility] | + + + | Organization | [facility] [employer] [facility] | + + + | Address | Unknown | + + + | Phone | Unavailable | + + + Support + + +---------+ + | Name | Relationship | Address | Phone | + + +---------+ + | Betty Conner | ECON | Unknown | | + + +---------+ + Care Team Providers + +------+ + | Care Welder 2Nd Shift Name | Role | Phone | + +------+ + | Clifton Stevens MD | PCP | | + +------+ + Encounter Details +--------+ + + + + | Date | Type | Department | Care Team | Description | +--------+ + + + + | 03/31/ | Lab | LAB CORE [address] | Nella [place], | | | 2018 | Requisition | [address] | [facility] | | | | | Road [place], [place] | [address] | | | | | [address] | [address] | | | | | [phone] | [place] [address] | | | | | | [phone] | | | | | | | [...] | + +--------+ + + + | SPECIMEN ROUTING | Routin | 03/31/2017 | | | | | e | 11:10 AM | | | | | | PST | | | + +--------+ + + + documented in this encounter Results SPECIMEN ROUTING (03/31/2017 11:10 AM PST) + + | Specimen | + + | Blood | + + + + + + + | Performing | Address | City/State/Zipcode | Phone Number | | Organization | | | | + + + + + | [facility] | [address] | [place] [address] | | | SERVICES, CORE | [address] | | | + + + + + documented in this encounter Visit Diagnoses Not on filedocumented in this encounter"
--- OUTSIDE RECORDS SUMMARY | ~2018-07-28 | XMS | Encounter Summary ---
Demographics + + + | Address | [address] | | | [place] [address] | + + + | Home Phone [...] + | Author | [facility] [employer] | + + + | Organization | [facility] [employer] | + + + | Address | Unknown | + + + | Phone | Unavailable | + + + Support + + +---------+ + | Name | Relationship | Address | Phone | + + +---------+ + | Betty Conner | ECON | Unknown | | + + +---------+ + Care Team Providers + +------+ + | Care Site Physician Name | Role | Phone | + [...] | 2019 | Procedure | ECHO | [address] | failure, unspecified | | | | | [place] | HF chronicity, | | | | | [address] | unspecified heart | | | | [...] [place], | | | | | | [place] [address] | | | | | | [phone] | | | | | | | [...] Patient Name: Sj Alex Date of | [facility] | | : 1945 Performing [...] MV A Kimani: 0.33 m/s MV Dec Pierce: 3.50 m/s2 | | | MV DecT: 140.55 ms MV E Kimani: 0.49 m/s MV E/A Ratio: | | | 1.45 E/E' Sept: 11.99 E' Lat: 0.07 m/s E' Sept: 0.04 | | | m/s RAP: 10 mmHg RVSP: 65.83 mmHg TR maxP.83 mmHg | | | TR Vmax: 3.73 m/s Medical Operations Supervisor: Authenticated by: Yazan | | | Nate Report Date/Time: 05-06-2018 19:38:26 | | + + + + + | Procedure Note | + + | Rafael Morrissey Results In - 05/06/2018 7:40 PM PST Patient Name: Fabien Alex | | of : 1945ccession: [id number] Physician: Yazan | | Robertmedina INDICATIONS------ | | -----CHFCONCLUSIONS 1. The left [...] mlLAESV Index (A-L): 44.82 ml/m2LAAs A2C: 24.58 [id number] A-L A2C: 85.82 | | mlLAESV MOD A2C: 84.22 mlLALs A2C: 5.97 cmLAAs A4C: 27.60 [id number] A-L A4C: | | 99.51 mlLAESV MOD A4C: 87.03 mlLALs A4C: 6.49 cmRAAs: 21.69 [id number] A-L: 69.03 | | mlRAESV MOD: 66.90 mlRALs: 5.78 cmTAPSE: 1.63 cmAV Env.Ti: 265.67 msAV maxPG: | | 5.06 mmHgAV meanP.06 mmHgAV Vmax: 1.12 m/Kelvin Vmean: 0.82 m/Kelvin VTI: 21.86 | | cmAVA Vmax: 3.02 cm2AVA (VTI): 3.56 [id number] Vmax: 0.00 cm2/m2AVAI (VTI): 0.00 | | cm2/m2LVOT Env.Ti: 361.77 msLVOT maxP.17 mmHgLVOT meanP.07 mmHgLVSI Dopp: | | 36.24 ml/m2LVSV Dopp: 77.92 mlLVOT Vmax: 0.73 m/sLVOT Vmean: 0.46 m/sLVOT VTI: | | 16.90 cmMV A Kimani: 0.33 m/sMV Dec Pierce: 3.50 m/s2MV DecT: 140.55 msMV E Kimani: [...] A Kimani: 0.33 m/s | |MV Dec [place]: 3.50 m/s2 | |MV DecT: 140.55 ms | |MV E Kimani: 0.49 m/s | |MV E/A Ratio: 1.45 | |E/E' Sept: 11.99 | |E' Lat: 0.07 m/s | |E' Sept: 0.04 m/s | |RAP: 10 mmHg | |RVSP: 65.83 mmHg | |TR maxP.83 mmHg | |TR Vmax: 3.73 m/s | | | |Medical Operations Supervisor: | |Authenticated by: Yazan Sullivan | |Report [...] | + + + + + | [facility] | [address] | [place] [address] | | + + + + + in this encounter Visit Diagnoses + + | Diagnosis | + + | Congestive heart failure, unspecified HF chronicity, unspecified heart failure type | | (HCC) | + +"
--- OUTSIDE RECORDS SUMMARY | ~2018-07-28 | XMS | Encounter Summary ---
Demographics + + + | Address | [address] [place] [address] | | | [place] [address] | + + + | Home Phone | | + + + | Preferred Language | Unknown | + + + | Marital Status | Unmarried Domestic Partner | + + + | Mormonism Affiliation | Unknown | + + + | Race | or | + + + | Ethnic Group | Not or | + + + Author + + + | Author | [place] [employer] [facility] | + + + | Organization | [facility] [employer] | + + + | Address | Unknown | + + + | Phone | Unavailable | + + + Support + + +---------+ + | Name | Relationship | Address | Phone | + + +---------+ + | Betty Conner | ECON | Unknown | | + + +---------+ + Care Team Providers + +------+ + | Care Gluing Machine Operator Electronic Name | Role | Phone | + [...] 2015 | | Coordinators [address] | [place], [place] | | | | | [address] | [address] | | | | | Road [place], [place] | | | | | | [address] | | | | | | [phone] | | | +--------+ + + + [...]
--- OUTSIDE RECORDS SUMMARY | ~2018-07-28 | XMS | Encounter Summary ---
Demographics + + + | Address | [address] [place] [address] | | | [place] [address] | + + + | Home Phone | | + + + | Preferred Language | Unknown | + + + | Marital Status | Unmarried Domestic Partner | + + + | Scientologist Affiliation | Unknown | + + + | Race | or | + + + | Ethnic Group | Not or | + + + Author + + + | Author | [place] [address] [facility] | + + + | Organization | [facility] [employer] [facility] | + + + | Address | Unknown | + + + | Phone | Unavailable | + + + Support + + +---------+ + | Name | Relationship | Address | Phone | + + +---------+ + | Betty Conner | ECON | Unknown | | + + +---------+ + Care Team Providers + +------+ + | Care Creative Arts Therapist Name | Role | Phone | + [...] [place] | | | | | | [place], [place] | | | | | | [address] | | | +--------+ + + + [...]
--- OUTSIDE RECORDS SUMMARY | ~2018-07-28 | XMS | Encounter Summary ---
Demographics + + + | Address | [address] | | | [place] [address] | + + + | Home Phone | | + + + | Preferred Language | Unknown | + + + | Marital Status | Unknown | + + + | Worship Affiliation | 1077 | + + + | Race | Unknown | + + + | Ethnic Group | Unknown | + + + Author + + + | Author | [facility] | + + + | Organization | [facility] [employer] | + + + | Address | Unknown | + + + | Phone | Unavailable | + + + Support + + +---------+ + | Name | Relationship | Address | Phone | + + +---------+ + | Betty Conner | ECON | Unknown | | + + +---------+ + Care Team Providers + +------+ + | Care Banbury Operator Name | Role | Phone | [...] [place] | | | | | | [address] | | | | | | [phone] | | | +--------+ + + + [...] [place], | | | | | | [place] [address] | | | | | | [phone] | | | | | | | | +--------+---------+ + + + as of this encounter Visit Diagnoses Not on filein this encounter"
--- OUTSIDE RECORDS SUMMARY | ~2018-07-28 | XMS | Encounter Summary ---
Demographics + + + | Address | [address] [place] [address] | | | [place] [address] | + + + | Home Phone | | + + + | Preferred Language | Unknown | + + + | Marital Status | Unmarried Domestic Partner | + + + | Presybeterian Affiliation | Unknown | + + + | Race | or | + + + | Ethnic Group | Not or | + + + Author + + + | Author | [place] [employer] [facility] | + + + | Organization | [facility] | + [...] Team Providers + +------+ + | Care Testing Projects Administrator Name | Role | Phone | + [...] | | | [address] | [facility] | | | | | Road [place], [place] | [place], [place] | | | | | [address] | [address] | | | | | [phone] | | | +--------+ + + + [...]
--- OUTSIDE RECORDS SUMMARY | ~2018-07-28 | XMS | Encounter Summary ---
Demographics + + + | Address | [address] | | | [place] [address] | + + + | Home Phone | | + + + | Preferred Language | Unknown | + + + | Marital Status | Unknown | + + + | Yarsanism Affiliation | 1077 | + + + | Race | Unknown | + + + | Ethnic Group | Unknown | + + + Author + + + | Author | [facility] | + + + | Organization | [facility] [employer] [facility] | + + + | Address | Unknown | + + + | Phone | Unavailable | + + + Support + + +---------+ + | Name | Relationship | Address | Phone | + + +---------+ + | Betty Conner | ECON | Unknown | | + + +---------+ + Care Team Providers + +------+ + | Care Weight And Balance Control Agent Name | Role | Phone | + [...] [place] | | | | | | [id number] | | | | | | | [...] | | | | | | [place] [address] | | | | | | [phone] | | | | | | | [...] Patient Name: Sj Alex Date of | [facility] | | : 1945 Performing | RADIOLOGY [...] 0.46 m/s | | | MV Dec [place]ountain: 6.39 m/s2 MV DecT: 136.62 ms MV [...] | | | TR Vmax: 3.24 m/s Wildlife Ecology Professor: MALIHA Authenticated | | | by: Yazan Bo MD Report Date/Time: 06-15-2018 18:11:23 | | + + + + + | Procedure Note | + + | Ghanshyam, Rad Results In - 06/15/2018 6:20 PM PDT Patient Name: Fabien Alex | | of : 1945ccession: [id number] Physician: Yazan Bo MD | | INDICATIONS [...] cmLVIDd: 5.29 cmLVPWd: 1.31 cmLVOT Area: 3.98 ir4ACQC Diam: 2.25 cm%FS: 17.04 | | %EF(Teich): [...] (A-L): | | 40.69 ml/m2LAAs A2C: 25.94 [id number] A-L A2C: 88.53 mlLALs A2C: 6.45 cmLAAs A4C: | | 25.60 [id number] A-L A4C: 86.33 mlLALs A4C: 6.44 cmRAAs: 28.17 [id number] A-L: | | 98.31 mlRAESV MOD: 96.39 mlRALs: 6.85 cmTAPSE: 1.55 cmAV maxP.29 mmHgAV | | meanP.40 mmHgAV Vmax: 1.35 m/Kelvin Vmean: 0.84 m/Kelvin VTI: 23.87 cmAVA Vmax: | | 2.45 cm2AVA (VTI): 2.54 [id number] Vmax: 0.00 cm2/m2AVAI (VTI): 0.00 cm2/m2LVOT | | maxP.75 mmHgLVOT meanP.34 mmHgLVSI Dopp: 28.31 ml/m2LVSV Dopp: 60.87 | | mlLVOT Vmax: 0.83 m/sLVOT Vmean: 0.55 m/sLVOT VTI: 15.26 cmMV A Kimani: 0.46 m/sMV | | Dec [place]ountain: 6.39 m/s2MV DecT: 136.62 msMV E Kimani: 0.87 m/sMV E/A Ratio: 1.86 MV | | PHT: 39.62 msMVA By PHT: 5.55 de4Orkksl e': 0.03 m/sSeptal E/e': 25.15 Lateral | [...] A Kimani: 0.46 m/s | |MV Dec [place]ountain: 6.39 m/s2 | |MV DecT: 136.62 ms [...] |TR Vmax: 3.24 m/s | | | |Wildlife Ecology Professor: DBS | |Authenticated by: Yazan Bo MD [...] | + + + + + | [facility] | [address] | [place] [address] | | + + + + + in this encounter Visit Diagnoses + + | Diagnosis | + + | Dyspnea, unspecified type | + +"
--- OUTSIDE RECORDS SUMMARY | ~2018-07-28 | XMS | Encounter Summary ---
Demographics + + + | Address | [address] | | | [place] [address] | + + + | Home Phone | | + + + | Preferred Language | Unknown | + + + | Marital Status | Unknown | + + + | Taoism Affiliation | 1077 | + + + | Race | Unknown | + + + | Ethnic Group | Unknown | + + + Author + + + | Author | [facility] [employer] | + + + | Organization | [facility] [employer] | + + + | Address | Unknown | + + + | Phone | Unavailable | + + + Support + + +---------+ + | Name | Relationship | Address | Phone | + + +---------+ + | Betty Conner | ECON | Unknown | | + + +---------+ + Care Team Providers + +------+ + | Care Metal Numerical Control Programmer Name | Role | Phone | + [...] | 2019 | Orders | ECHO | [address] | failure, unspecified | | | | | [place] | HF chronicity, | | | | | [address] | unspecified heart | | | | [...] | | | | | | [place] [address] | | | | | | [phone] | | | | | | | [...] Patient Name: Sj Alex Date of | [facility] | | : 1945 Performing | RADIOLOGY [...] MV A Kimani: 0.33 m/s MV Dec [place]: 3.50 m/s2 | | | MV DecT: 140.55 ms MV E Kimani: 0.49 m/s MV E/A Ratio: | | | 1.45 E/E' Sept: 11.99 E' Lat: 0.07 m/s E' Sept: 0.04 | | | m/s RAP: 10 mmHg RVSP: 65.83 mmHg TR maxP.83 mmHg | | | TR Vmax: 3.73 m/s Metal Hardener: Authenticated by: Yazan | | | [place] Report Date/Time: 05-06-2018 19:38:26 | | + + + + + | Procedure Note | + + | Ghanshyam, Rad Results In - 05/06/2018 7:40 PM PST Patient Name: Fabien Alex | | of : 1945ccession: [id number] Physician: Yazan | | [facility] INDICATIONS------ | | -----CHFCONCLUSIONS 1. The left [...] mlLAESV Index (A-L): 44.82 ml/m2LAAs A2C: 24.58 [id number] A-L A2C: 85.82 | | mlLAESV MOD A2C: 84.22 mlLALs A2C: 5.97 cmLAAs A4C: 27.60 [id number] A-L A4C: | | 99.51 mlLAESV MOD A4C: 87.03 mlLALs A4C: 6.49 cmRAAs: 21.69 [id number] A-L: 69.03 | | mlRAESV MOD: 66.90 mlRALs: 5.78 cmTAPSE: 1.63 cmAV Env.Ti: 265.67 msAV maxPG: | | 5.06 mmHgAV meanP.06 mmHgAV Vmax: 1.12 m/Kelvin Vmean: 0.82 m/Kelvin VTI: 21.86 | | cmAVA Vmax: 3.02 cm2AVA (VTI): 3.56 [id number] Vmax: 0.00 cm2/m2AVAI (VTI): 0.00 | | cm2/m2LVOT Env.Ti: 361.77 msLVOT maxP.17 mmHgLVOT meanP.07 mmHgLVSI Dopp: | | 36.24 ml/m2LVSV Dopp: 77.92 mlLVOT Vmax: 0.73 m/sLVOT Vmean: 0.46 m/sLVOT VTI: | | 16.90 cmMV A Kimani: 0.33 m/sMV Dec [place]: 3.50 m/s2MV DecT: 140.55 msMV E Kimani: [...] A Kimani: 0.33 m/s | |MV Dec [place]: 3.50 m/s2 | |MV DecT: 140.55 ms | |MV E Kimani: 0.49 m/s | |MV E/A Ratio: 1.45 | |E/E' Sept: 11.99 | |E' Lat: 0.07 m/s | |E' Sept: 0.04 m/s | |RAP: 10 mmHg | |RVSP: 65.83 mmHg | |TR maxP.83 mmHg | |TR Vmax: 3.73 m/s | | | |Metal Hardener: | |Authenticated by: Yazan Robertluz | |Report [...] [facility] | [address] | [place] [address] | | + + + + + in this encounter Visit Diagnoses + + | Diagnosis | + + | Congestive heart failure, unspecified HF chronicity, unspecified heart failure type | | (HCC) | + +"
--- OUTSIDE RECORDS SUMMARY | ~2018-07-28 | XMS | Encounter Summary ---
Demographics + + + | Address | [address] [place] [address] | | | [place] [address] | + + + | Home Phone | | + + + | Preferred Language | Unknown | + + + | Marital Status | Unmarried Domestic Partner | + + + | Zoroastrianism Affiliation | Unknown | + + + | Race | or | + + + | Ethnic Group | Not or | + + + Author + + + | Author | [place] [employer] [facility] | + + + | Organization | [facility] [employer] [facility] | + + + | Address | Unknown | + + + | Phone | Unavailable | + + + Support + + +---------+ + | Name | Relationship | Address | Phone | + + +---------+ + | Betty Conner | ECON | Unknown | | + + +---------+ + Care Team Providers + +------+ + | Care Record Keeper Name | Role | Phone | + [...] 2018 | Requisition | [address] | [facility] | | | | | Road [place], [place] | [address] [employer] | | | | | [address] | [address] | | | | | [phone] | [place] [address] | | | | | | [phone] | | | | | | | [...] | + + + + + | [facility] | [address] | [place] [address] | | | SERVICES, CORE | [address] | | | + + + + + documented in this encounter Visit Diagnoses Not on filedocumented in this encounter"
--- OUTSIDE RECORDS SUMMARY | ~2018-07-28 | XMS | Encounter Summary ---
Demographics + + + | Address | [address] | | | [place] [address] | + + + | Home Phone | | + + + | Preferred Language | Unknown | + + + | Marital Status | Unknown | + + + | Mandaeism Affiliation | 1077 | + + + | Race | Unknown | + + + | Ethnic Group | Unknown | + + + Author + + + | Author | [facility] | + + + | Organization | [facility] [employer] | + + + | Address | Unknown | + + + | Phone | Unavailable | + + + Support + + +---------+ + | Name | Relationship | Address | Phone | + + +---------+ + | Betty Conner | ECON | Unknown | | + + +---------+ + Care Team Providers + +------+ + | Care Water Resource Engineer Name | Role | Phone | + +------+ + | Clifton Stevens MD | PCP | | + +------+ + Reason for Visit +--------+ + | Reason | Comments | +--------+ + | Other | June 2018-[facility] Provider Dialysis Rounding Note | +--------+ + Encounter Details +--------+ + + + + | Date | Type | Department | Care Team | Description | +--------+ + + + + | 07/16/ | Documentati | [facility] | Josh Franklin MD | Other (June | | 2018 | on Only | [place] [address] | [address] | 2019-[facility] Provider | | | | [address] | [address] [place], [place] | Dialysis Rounding | | | | [place] [address] | [address] | Note) | | | | [phone] | | | +--------+ + + + [...] | | | | | | [place] [address] | | | | | | [phone] | | | | | | | | +--------+---------+ + + + as of this encounter Visit Diagnoses Not on filein this encounter"
--- OUTSIDE RECORDS SUMMARY | ~2018-07-28 | XMS | Encounter Summary ---
Demographics + + + | Address | [address] | | | [place] [address] | + + + | Home Phone | | + + + | Preferred Language | Unknown | + + + | Marital Status | Unknown | + + + | Voodoo Affiliation | 1077 | + + + | Race | Unknown | + + + | Ethnic Group | Unknown | + + + Author + + + | Author | [facility] | + + + | Organization | [facility] [employer] [facility] | + + + | Address | Unknown | + + + | Phone | Unavailable | + + + Support + + +---------+ + | Name | Relationship | Address | Phone | + + +---------+ + | Betty Conner | ECON | Unknown | | + + +---------+ + Care Team Providers + +------+ + | Care Textile Clothing And Footwear Mechanic Name | Role | Phone | + [...] [place] | | | | | | [id number] | | | | | | | [...] | | | | | | [place] [address] | | | | | | [phone] | | | | | | | [...] 0.46 m/s | | | MV Dec Roane: 6.39 m/s2 MV DecT: 136.62 ms MV [...] | | | TR Vmax: 3.24 m/s Resident Associate: MALIHA Authenticated | | | by: Yazan Bo MD Report Date/Time: 06-15-2018 18:11:23 | | + + + + + | Procedure Note | + + | Rafael Morrissey In - 06/15/2018 6:20 PM PDT Patient Name: Fabien Alex | | of : 1945ccession: [id number] Physician: Yazan Bo MD | | INDICATIONS [...] cmLVIDd: 5.29 cmLVPWd: 1.31 cmLVOT Area: 3.98 [id number] Diam: 2.25 cm%FS: 17.04 | | %EF(Teich): [...] (A-L): | | 40.69 ml/m2LAAs A2C: 25.94 [id number] A-L A2C: 88.53 mlLALs A2C: 6.45 cmLAAs A4C: | | 25.60 mf4SLISH A-L A4C: 86.33 mlLALs A4C: 6.44 cmRAAs: 28.17 [id number] A-L: | | 98.31 mlRAESV MOD: 96.39 mlRALs: 6.85 cmTAPSE: 1.55 cmAV maxP.29 mmHgAV | | meanP.40 mmHgAV Vmax: 1.35 m/Kelvin Vmean: 0.84 m/Kelvin VTI: 23.87 cmAVA Vmax: | | 2.45 cm2AVA (VTI): 2.54 oy7DLDP Vmax: 0.00 cm2/m2AVAI (VTI): 0.00 cm2/m2LVOT | | maxP.75 mmHgLVOT meanP.34 mmHgLVSI Dopp: 28.31 ml/m2LVSV Dopp: 60.87 | | mlLVOT Vmax: 0.83 m/sLVOT Vmean: 0.55 m/sLVOT VTI: 15.26 cmMV A Kimani: 0.46 m/sMV | | Dec Roane: 6.39 m/s2MV DecT: 136.62 msMV E Kimani: 0.87 m/sMV E/A Ratio: 1.86 MV | | PHT: 39.62 msMVA By PHT: 5.55 qa3Epyanw e': 0.03 m/sSeptal E/e': 25.15 Lateral | | e': 0.09 m/sLateral E/e': 8.73 RAP: 20 mmHgRV S': 0.09 m/sRVSP: 62.21 mmHgTR | | maxP.21 mmHgTR Vmax: 3.24 m/sSonographer: DBSAuthenticated by: Anupam, | | [facility] Date/Time: 06-15-2018 18:11:23IMPRESSION:1. The left [...] A Kimani: 0.46 m/s | |MV Dec Roane: 6.39 m/s2 | |MV DecT: 136.62 ms [...] |TR Vmax: 3.24 m/s | | | |Resident Associate: DBS | |Authenticated by: Yazan Bo MD [...] [facility] | [address] | [place] [address] | | + + + + + in this encounter Visit Diagnoses + + | Diagnosis | + + | Dyspnea, unspecified type | + +"
--- OUTSIDE RECORDS SUMMARY | ~2018-07-28 | XMS | Encounter Summary ---
Demographics + + + | Address | [address] | | | [place] [address] | + + + | Home Phone | | + + + | Preferred Language | Unknown | + + + | Marital Status | Unknown | + + + | Sikh Affiliation | 1077 | + + + | Race | Unknown | + + + | Ethnic Group | Unknown | + + + Author + + + | Author | [facility] | + + + | Organization | [facility] [facility] | + + + | Address | Unknown | + + + | Phone | Unavailable | + + + Support + + +---------+ + | Name | Relationship | Address | Phone | + + +---------+ + | Betty Conner | ECON | Unknown | | + + +---------+ + Care Team Providers + +------+ + | Care Ambulatory Care Coordinator Name | Role | Phone | + [...] (April | 2018 | on Only | [place] [address] | [address] | [facility] Provider | | | | [address] | [address] [place], [place] | Dialysis Rounding | | | | [place] [address] | [address] | Note) | | | | [phone] | | | +--------+ + + + [...] [place], | | | | | | [place] [address] | | | | | | [phone] | | | | | | | | +--------+---------+ + + + as of this encounter Visit Diagnoses Not on filein this encounter"
--- OUTSIDE RECORDS SUMMARY | ~2018-07-28 | XMS | Clinical Summary ---
Demographics + + + | Address | [address] | | | [place] [address] | + + + | Home Phone | | + + + | Preferred Language | Unknown | + + + | Marital Status | Single | + + + | Judaism Affiliation | 1077 | + + + | Race | Unknown | + + + | Ethnic Group | Unknown | + + + Author + + + | Author | [facility] | | | and [place] | + + + | Organization | [facility] | | | and [place] | + + + | Address | Unknown | + + + | Phone | Unavailable | + + + Support + + +---------+ + | Name | Relationship | Address | Phone | + + +---------+ + | Betty Conner | ECON | Unknown | | + + +---------+ + Care Team Providers + +------+ + | Care Data Designer Name | Role | Phone | + +------+ + | Clifton Stevens DO | PP | | + +------+ + Allergies No Known Allergies Medications + + + +---------+------+------+-------+ | Medication | Sig | Dispensed | Refills | Star | End | Statu | | | | | | t | Date | s | | | | | | Date | | | + + + +---------+------+------+-------+ | amLODIPine | Take 10 mg by mouth | | 0 | 06/2 | | Activ | | (NORVASC) 10 MG | Daily. | | | 2/20 | | e | | tablet | | | | 15 | | | + + + +---------+------+------+-------+ | cloNIDine | Place 1 patch onto | | 0 | | | Activ | | (CATAPRES) 0.3 mg/24 | the skin once a | | | | | e | | hr | week. | | | | | | + + + +---------+------+------+-------+ | b complex-vitamin | Take 0.8 mg by mouth | | 0 | | | Activ | | c-folic acid | daily. | | | | | e | | (NEPHRO-HANNA) tablet | | | | | | | + + + +---------+------+------+-------+ | furosemide (LASIX) | Take 80 mg by mouth | | 0 | | | Activ | | 80 mg tablet | daily. | | | | | e | + + + +---------+------+------+-------+ | omeprazole | Daily as needed. | | 0 | 12/0 | | Activ | | (PRILOSEC) 20 mg | TAKE 1 BY MOUTH | | | 7/20 | | e | | capsule | EVERY DAY | | | 15 | | | + + + +---------+------+------+-------+ | sevelamer | Take 1,600 mg by | | 0 | | | Activ | | carbonate (RENVELA) | mouth 3 (three) | | | | | e | | 800 mg tablet | times daily with | | | | | | | | meals. 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 - PLAVIX | 10/02/2015 | + + + | H/O coronary artery stent | 10/02/2015 | + + + | Hypertensive renal disease with renal failure | 10/02/2015 | + + + + + | Overview: Overview: | | [facility] 2728 diagnosis | + + + + + | ESRD on dialysis | 10/02/2015 | + + + | RBBB (right bundle branch block) | 10/02/2015 | + + + | LAFB (left anterior fascicular block) | 10/02/2015 | + + + | Deviated nasal septum | 09/18/2015 | + + + | Hypertrophy of nasal turbinates | 09/18/2015 | + + + | Hyperlipidemia | 07/18/2015 | + + + | Gout | 07/18/2015 | + + + | Vitamin D deficiency | 07/18/2015 | + + + | Iron deficiency | 07/18/2015 | + + + | Hypothyroidism | 07/18/2015 | + + + | Hearing loss | 07/18/2015 | + + + | Allergic rhinitis | 07/18/2015 | + + + | Left heart failure | 07/18/2015 | + + + | Coronary arteriosclerosis in [place] artery | 06/20/2015 | + + + + + | Overview: Last Assessment & Plan: 1V-CAD, Hx PCI/stent, LVEF | | 42%. 69yo NAIM, with exertional shortness of breath, [...] | + + + + + | Congestive heart failure | 04/11/2015 | + + + + + | Overview: Last Assessment & Plan: CHF. 69yo NAIM, | | with exertional shortness of breath, no significant symptoms at | | rest. There is no orthopnea, PND, or significant edema. Denies | | any significant chest discomfort. However he does have history | | of congestive heart failure, most likely due to [...] inability for in-hospital dialysis, this [facility] be [facility]. He will | | need to [...] Aorta 41mm.Last | | Stress Test, 05/17/2015 ([facility] Lexiscan, global | | hypokinesis, LVEF 37%.ECG, 03/18/2015 ( [facility]): sinus | | rhythm, 77bpm, RBBB/LAFB. | + + + +---+ | Hypertension | | + +---+ Family History + + +------+ + | Medical History | Relation | Name | Comments | + + +------+ + | Diabetes | Mother | | | + + +------+ + | Heart disease | Mother | | | + + +------+ + + +------+--------+ + | Relation | Name | Status | Comments | + +------+--------+ + | Mother | | | chf | + +------+--------+ + Social History + + + +--------+ + | Tobacco Use | Types | Packs/Day | Years | Date | | | | | Used | | + + + +--------+ + | Former Smoker | Cigarettes | 0.5 | | Quit: 03/09/1968 | + + + +--------+ + + +---+---+ + | Smokeless Tobacco: | | | Quit: | | Former User | | | 03/09/18 | | | | | 69 | + +---+---+ + + + +---------+ + | Alcohol Use | Drinks/We | oz/Week | Comments | | | ek | | | + + +---------+ + | No | 0 | 0.0 | | | | Standard | | [...] recent travel history available. | + + Last Filed Vital Signs + + + + | Vital Sign | Reading | Time Taken | + + + + | Blood Pressure | 148/73 | 10/21/2016 1500 PDT | + + + + | Pulse | 68 | 11/13/2016932 PDT | + + + + | Temperature | 36.2 C (97.2 F) | 10/21/2016 1417 PDT | + + + + | Respiratory Rate | 16 | 11/13/2016932 PDT | + + + + | Oxygen Saturation | 96% | 11/13/2016932 PDT | + + + + | Inhaled Oxygen | - | - | | Concentration | | | + + + + | Weight | 93.9 kg (207 lb) | 11/13/2016932 PDT | + + + + | Height | 180.3 cm (5' 11") | 11/13/2016932 PDT | + + + + | Body Mass Index | 28.87 | 11/13/2016932 PDT | + + + + Plan of Treatment + + + + + | Health Maintenance | Due Date | Last Done | Comments | + + + + + | Hepatitis C | | | | | Screening | 6 | | | + + + + + | Vaccine: | | | | | Dtap/Tdap/Td (1 - | 5 | | | | Tdap) | | | | + + + + + | Vaccine: Zoster (1 | | | | | of 2) | 6 | | | + + + + + | AAA Screening | | | | | | 1 | | | + + + + + | Vaccine: | | | | | Pneumococcal 65+ | 1 | | | | High/Highest Risk (1 | | | | | of 2 - PCV13) | | | | + + + + + | Colorectal Cancer | | 07/01/2002 | | | Screening | 3 | | | | (Colonoscopy) | | | | + + + + + | Adult Annual | | | | | Wellness Visit | 5 | | | + + + + + | Vaccine: Influenza | | | | | (Season Ended) | 9 | | | + + + + + Results Not on filefrom Last 3 Months Insurance + +--------+ +--------+ +---------+--------+ | Payer | Benefi | Subscriber | Effect | Phone | Address | Type | | | t Plan | ID | miguel | | | | | | / | | Dates | | | | | | Group | | | | | | + +--------+ +--------+ +---------+--------+ | MEDICARE | MEDICA | [id number] | 11/08/19 | [phone] | | Medica | | | RE | | 11-Pre | 5 | | re | | | PART A | | sent | | | | | | AND B | | | | | | + +--------+ +--------+ +---------+--------+ | [employer] | IHS | [id number] | | | | Indemn | | SERVICE | YELLOW | | 016-Pr | | | ity | | | HAWK | | esent | | | | + +--------+ +--------+ +---------+--------+ + +--------+ +--------+ + + | Guarantor Name | Accoun | Relation to | Date | Phone | Billing Address | | | t Type | Patient | of | | | | | | | | | | + +--------+ +--------+ + + | FantaSj garcia | Person | Self | [birth year] | [address] | | [place] | al/Fam | | 1946 | [phone] | [address] [place] | | | [place] | | | [address] (Home) | [address] | + +--------+ +--------+ + + Advance Directives Patient has advance care planning documents, and code status on file. For more information, please contact:[place] [address] + + + + + | Code Status | Date | Date | Comments | | | Activated | Inactivated | | + + + + + | Full Code | 10/21/2016 | 10/21/2016 | | | | 14:37 | 17:17 | | + + + + + + + + +---+ | | | | | + + + +---+ | Full Code | 10/02/2015 | 10/02/2015 | | | | 11:54 | 15:43 | | + + + +---+
--- OUTSIDE RECORDS SUMMARY | ~2018-07-28 | XMS | Encounter Summary ---
Demographics + + + | Address | [address] [place] [address] | | | [place] [address] | + + + | Home Phone | | + + + | Preferred Language | Unknown | + + + | Marital Status | Unmarried Domestic Partner | + + + | Moravian Affiliation | Unknown | + + + | Race | or | + + + | Ethnic Group | Not or | + + + Author + + + | Author | [place] [facility] | + + + | Organization | [facility] | + + + | Address | Unknown | + + + | Phone | Unavailable | + + + Support + + +---------+ + | Name | Relationship | Address | Phone | + + +---------+ + | Betty Conner | ECON | Unknown | | + + +---------+ + Care Team Providers + +------+ + | Care Guitar Instructor Name | Role | Phone | + [...] | on | Coordinators [address] | [place], [place] | | | | | [address] | [address] | | | | | Road [place], [place] | | | | | | [address] | | | | | | [phone] | | | +--------+ + + + [...]
--- OUTSIDE RECORDS SUMMARY | ~2018-07-28 | XMS | Encounter Summary ---
Demographics + + + | Address | [address] | | | [place] [address] | + + + | Home Phone | | + + + | Preferred Language | Unknown | + + + | Marital Status | Unknown | + + + | Jehovah'S Witness Affiliation | 1077 | + + + | Race | Unknown | + + + | Ethnic Group | Unknown | + + + Author + + + | Author | [facility] | + + + | Organization | [facility] | + + + | Address | Unknown | + + + | Phone | Unavailable | + + + Support + + +---------+ + | Name | Relationship | Address | Phone | + + +---------+ + | Betty Conner | ECON | Unknown | | + + +---------+ + Care Team Providers + +------+ + | Care Fashion Buying Internship Name | Role | Phone | + +------+ + | Clifton Stevens MD | PCP | | + +------+ + Encounter Details +--------+ + + + + | Date | Type | Department | Care Team | Description | +--------+ + + + + | 06/15/ | Ancillary | [facility] | Ruby Manley FNP | | | 2019 | Orders | [facility] | [address] | | | | | Echocardiography | [place] | | | | | [address] | [address] | | | | | [place] | | | | | | [address] | | | | | | [phone] | | | +--------+ + + + [...] Cardiology | Yazan Sullivan, | | | 2019 | Visit | | MD Colin Levin | | | | | | Dr [place], | | | | | | [place] [address] | | | | | | [phone] | | | | | | | | +--------+---------+ + + + as of this encounter Visit Diagnoses Not on filein this encounter"
--- OUTSIDE RECORDS SUMMARY | ~2018-07-28 | XMS | Encounter Summary ---
Demographics + + + | Address | [address] [place] [address] | | | [place] [address] | + + + | Home Phone | | + + + | Preferred Language | Unknown | + + + | Marital Status | Unmarried Domestic Partner | + + + | Congregation Affiliation | Unknown | + + + | Race | or | + + + | Ethnic Group | Not or | + + + Author + + + | Author | [place] [facility] | + + + | Organization | [facility] | + + + | Address | Unknown | + + + | Phone | Unavailable | + + + Support + + +---------+ + | Name | Relationship | Address | Phone | + + +---------+ + | Betty Conner | ECON | Unknown | | + + +---------+ + Care Team Providers + +------+ + | Care Assistant Dean Name | Role | Phone | + [...] LAB | | | | | | [address] | | | | | | [place] | | | | | | [place], [place] | | | | | | [address] | | | +--------+ + + + [...] + + | [facility] - | [address] | [place], [place] [address] | | | IMMUNOGENETICS/TRANS | [address] [...] [facility] - | [address] | [place] [address] | | | IMMUNOGENETICS/TRANS | [address] [...] - | [address] | [place], [place] | | | IMMUNOGENETICS/TRANS | [address] [...] - | [address] | [place], [place] | | | IMMUNOGENETICS/TRANS | [address] [...] [facility] - | [address] | [place] [address] | | | IMMUNOGENETICS/TRANS | [address] | | | | [facility] | | | | + + + + + documented in this encounter Visit Diagnoses Not on filedocumented in this encounter"
--- OUTSIDE RECORDS SUMMARY | ~2018-07-28 | XMS | Encounter Summary ---
Demographics + + + | Address | [address] | | | [place] [address] | + + + | Home Phone | | + + + | Preferred Language | Unknown | + + + | Marital Status | Unknown | + + + | Latter-Day Affiliation | 1077 | + + + | Race | Unknown | + + + | Ethnic Group | Unknown | + + + Author + + + | Author | [facility] | + + + | Organization | [facility] [employer] [facility] | + + + | Address | Unknown | + + + | Phone | Unavailable | + + + Support + + +---------+ + | Name | Relationship | Address | Phone | + + +---------+ + | Betty Conner | ECON | Unknown | | + + +---------+ + Care Team Providers + +------+ + | Care Title Insurance Sales Representative Name | Role | Phone | + +------+ + | Clifton Stevens MD | PCP | | + +------+ + Encounter Details +--------+ + + + + | Date | Type | Department | Care Team | Description | +--------+ + + + + | 06/15/ | Ancillary | [facility] | Ruby Manley FNP | | | 2019 | Orders | [facility] | [address] | | | | | Echocardiography | [place] | | | | | [address] | [address] | | | | | [place] | | | | | | [address] | | | | | | [phone] | | | +--------+ + + + [...] | | | | | | [place] [address] | | | | | | [phone] | | | | | | | | +--------+---------+ + + + as of this encounter Visit Diagnoses Not on filein this encounter"
--- OUTSIDE RECORDS SUMMARY | ~2018-07-28 | XMS | Encounter Summary ---
Demographics + + + | Address | [address] | | | [place] [address] | + + + | Home Phone | | + + + | Preferred Language | Unknown | + + + | Marital Status | Unknown | + + + | Christianity Affiliation | 1077 | + + + | Race | Unknown | + + + | Ethnic Group | Unknown | + + + Author + + + | Author | [facility] | + + + | Organization | [facility] | + + + | Address | Unknown | + + + | Phone | Unavailable | + + + Support + + +---------+ + | Name | Relationship | Address | Phone | + + +---------+ + | Betty Conner | ECON | Unknown | | + + +---------+ + Care Team Providers + +------+ + | Care Program Director Air Talent Name | Role | Phone | + [...] | | 2018 | on Only | [place] [address] | [address] | [facility] Provider | | | | [address] | [address] [place], [place] | Dialysis Rounding | | | | [place] [address] | [address] | Note) | | | | [phone] | | | +--------+ + + + [...] | | | | | | [place] [address] | | | | | | [phone] | | | | | | | | +--------+---------+ + + + as of this encounter Visit Diagnoses Not on filein this encounter"
--- OUTSIDE RECORDS SUMMARY | ~2018-07-28 | XMS | Encounter Summary ---
Demographics + + + | Address | [address] [place] [address] | | | [place] [address] | + + + | Home Phone | | + + + | Preferred Language | Unknown | + + + | Marital Status | Unmarried Domestic Partner | + + + | Mormon Affiliation | Unknown | + + + | Race | or | + + + | Ethnic Group | Not or | + + + Author + + + | Author | [place] [employer] [facility] | + + + | Organization | [facility] [employer] [facility] [...] Team Providers + +------+ + | Care Zipper Ironer Name | Role | Phone | + [...] | on | Coordinators [address] | [place], [place] | | | | | [address] | [address] | | | | | Road [place], [place] | | | | | | [address] | | | | | | [phone] | | | +--------+ + + + [...]
--- OUTSIDE RECORDS SUMMARY | ~2018-07-28 | XMS | Clinical Summary ---
Demographics + + + | Address | [address] | | | [place] [address] | + + + | Home Phone | | + + + | Preferred Language | Unknown | + + + | Marital Status | Unknown | + + + | Adventism Affiliation | [phone] | + + + | Race | Unknown | + + + | Ethnic Group | Unknown | + + + Author + + + | Author | [facility] | + + + | Organization | [facility] | + + + | Address | Unknown | + + + | Phone | Unavailable | + + + Support + + +---------+ + | Name | Relationship | Address | Phone | + + +---------+ + | Betty Conner | ECON | Unknown | | + + +---------+ + Care Team Providers + +------+ + | Care Dancing Teacher Name | Role | Phone | + [...] + + | 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 Authenticated | | | by: Yazan Bo MD Report Date/Time: 06-15-2018 18:11:23 | | + + + + + | Procedure Note | + + | Ghanshyam, Rafael Results In - 06/15/2018 6:20 PM PDT Patient Name: Fabien Alex | | of : 1945ccession: [id number] Physician: Yazan Bo MD | | INDICATIONS [...] cmLVIDd: 5.29 cmLVPWd: 1.31 cmLVOT Area: 3.98 [id number] Diam: 2.25 cm%FS: 17.04 | | %EF(Teich): [...] (A-L): | | 40.69 ml/m2LAAs A2C: 25.94 [id number] A-L A2C: 88.53 mlLALs A2C: 6.45 cmLAAs A4C: | | 25.60 do3RYKNO A-L A4C: 86.33 mlLALs A4C: 6.44 cmRAAs: 28.17 [id number] A-L: | | 98.31 mlRAESV MOD: 96.39 mlRALs: 6.85 cmTAPSE: 1.55 cmAV maxP.29 mmHgAV | | meanP.40 mmHgAV Vmax: 1.35 m/Kelvin Vmean: 0.84 m/Kelvin VTI: 23.87 cmAVA Vmax: | | 2.45 cm2AVA (VTI): 2.54 [id number] Vmax: 0.00 cm2/m2AVAI (VTI): 0.00 cm2/m2LVOT | | maxP.75 mmHgLVOT meanP.34 mmHgLVSI Dopp: 28.31 ml/m2LVSV Dopp: 60.87 | | mlLVOT Vmax: 0.83 m/sLVOT Vmean: 0.55 m/sLVOT VTI: 15.26 cmMV A Kimani: 0.46 m/sMV | | Dec [place]: 6.39 m/s2MV DecT: 136.62 msMV E Kimani: 0.87 m/sMV E/A Ratio: 1.86 MV | | PHT: 39.62 msMVA By PHT: 5.55 [id number] e': 0.03 m/sSeptal E/e': 25.15 Lateral | [...] A Kimani: 0.46 m/s | |MV Dec [place]: 6.39 m/s2 | |MV DecT: 136.62 ms [...] |TR Vmax: 3.24 m/s | | | |Mar[employer] Terminal Superintendent: DBS | |Authenticated by: Yazan Bo MD [...] | + + + + + | [facility] | [address] | [place] [address] | | + + + + + [...] Patient Name: Ella Alex Date of | [facility] | | : 1945 Performing [...] MV A Kimani: 0.33 m/s MV Dec [place]: 3.50 m/s2 | | | MV DecT: 140.55 ms MV E Kimani: 0.49 m/s MV E/A Ratio: | | | 1.45 E/E' Sept: 11.99 E' Lat: 0.07 m/s E' Sept: 0.04 | | | m/s RAP: 10 mmHg RVSP: 65.83 mmHg TR maxP.83 mmHg | | | TR Vmax: 3.73 m/s [employer] Superintendent: Authenticated by: Yazan | | | [facility] Report Date/Time: 05-06-2018 19:38:26 | | + + + + + | Procedure Note | + + | Rafael Morrissey Results In 05/06/2018 7:40 PM PST Patient Name: Fabien Alex | | of : 1945ccession: [id number] Physician: Yazan | | [place] INDICATIONS------ | | -----CHFCONCLUSIONS 1. The left [...] mlLAESV Index (A-L): 44.82 ml/m2LAAs A2C: 24.58 [id number] A-L A2C: 85.82 | | mlLAESV MOD A2C: 84.22 mlLALs A2C: 5.97 cmLAAs A4C: 27.60 [id number] A-L A4C: | | 99.51 mlLAESV MOD A4C: 87.03 mlLALs A4C: 6.49 cmRAAs: 21.69 [id number] A-L: 69.03 | | mlRAESV MOD: 66.90 mlRALs: 5.78 cmTAPSE: 1.63 cmAV Env.Ti: 265.67 msAV maxPG: | | 5.06 mmHgAV meanP.06 mmHgAV Vmax: 1.12 m/Kelvin Vmean: 0.82 m/Kelvin VTI: 21.86 | | cmAVA Vmax: 3.02 cm2AVA (VTI): 3.56 dt8VQPF Vmax: 0.00 cm2/m2AVAI (VTI): 0.00 | | cm2/m2LVOT Env.Ti: 361.77 msLVOT maxP.17 mmHgLVOT meanP.07 mmHgLVSI Dopp: | | 36.24 ml/m2LVSV Dopp: 77.92 mlLVOT Vmax: 0.73 m/sLVOT Vmean: 0.46 m/sLVOT VTI: | | 16.90 cmMV A Kimani: 0.33 m/sMV Dec [place]: 3.50 m/s2MV DecT: 140.55 msMV E Kimani: [...] A Kimani: 0.33 m/s | |MV Dec [place]: 3.50 m/s2 | |MV DecT: 140.55 ms | |MV E Kimani: 0.49 m/s | |MV E/A Ratio: 1.45 | |E/E' Sept: 11.99 | |E' Lat: 0.07 m/s | |E' Sept: 0.04 m/s | |RAP: 10 mmHg | |RVSP: 65.83 mmHg | |TR maxP.83 mmHg | |TR Vmax: 3.73 m/s | | | |Mar[employer] Oil Terminal Superintendent: | |Authenticated by: Yazan Bo | |Report [...] [facility] | [address] | [place] [address] | | + + + + + [...] + + | MEDICARE | MEDICA | [id number] | | | [address] | | | RE | | | | [place] [address] | | | IP-OP | | | | | + +--------+ +------+ + + | [place] | [place] | [id number] | | [phone] FEE SERVICES A136 | | ADMINISTRATION | CHOICE | | | [phone] | | | | | | [address] [place], [place] | | | | | | | [phone] | + +--------+ +------+ + + | [facility] | YELLOW | [id number] | | | | | PLANS | [...] | Self | [birth year] | Home: | [address] | | A | al/Fam | | 1946 | +- | [place] | | | becca | | | [address] | [phone] | + +--------+ +--------+ + + | ELLA ALEX | Vetera | Self | [birth year] | [address]: | [address] | | ROMAN | ns | | 1946 | +- | [place] | | | Admini | | | [address] | [phone] | | | strati | | | | | | | on | | | | | + +--------+ +--------+ + +
--- OUTSIDE RECORDS SUMMARY | ~2018-07-28 | XMS | Clinical Summary ---
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 He will | | need to [...] Aorta 41mm.Last | | Stress Test, 05/17/2015 ([facility]'): Lexiscan, global | | hypokinesis, LVEF 37%.ECG, [...] +--------+ +---------+--------+ | MEDICARE | MEDICA | [id number] | 11/08/19 | [phone] | | Medica | | | RE | | 11-Pre | 5 | | re | | | PART A | | sent | | | | | | AND B | | | | | | + +--------+ +--------+ +---------+--------+ | [facility] | IHS | [id number] | | | | Indemn | | [...] Person | Self | [birth year] | | [address] | | [place] | al/Fam | | 1946 | [phone] | [address] [place] | | | [place] | | | [address] (Home) | [address] | + +--------+ +--------+ + + Advance Directives Patient has advance care planning documents, and code status on file. For more information, please contact:[place] [address] + + + + + | Code [...]
[~2018-07-28 14:11] MED LIST: AMLODIPINE BESY10 MG PO; AZITHROMYCIN250 MG PO; CARVEDILOL6.25 MG PO; CLONIDINE1 EAC1 TD; PLAVIX75 MG PO; PROAIR HFA8.5 GM INH
--- NOTE | 2018-07-29 11:23 | CONS ---
[facility] [address], [place] [address] Signed DATE OF CONSULTATION: 07/28/2018 TIME: 4:30 p.m. PROBLEM: Difficult to control bleeding from left humeral arterial venous graft following dialysis. HISTORY: This 72-year-old Haitian man has been undergoing dialysis for the past seven years. He underwent dialysis today, was noted to have a nonclotting area and progressive bleeding of his left AV graft in the proximal portion. He was directly referred to the emergency room with a mechanical C clamp applied to the site. The patient had been observed for at least 2 hours at the dialysis center, I am told. He is a patient of Karime [facility] at [facility]. He was thoroughly evaluated by Dr. Davidson in the emergency room and several attempts at suturing of the site were undertaken that is unsuccessful. Application of gauze was once again applied and he seems to have no ongoing bleeding at the moment. The patient has had prior anticoagulation for a "heart problem" in the past, but denies any ongoing intentional anticoagulation other than what may be provided during hemodialysis. He denies any other concurrent symptoms of chest pain, shortness of breath, lightheadedness, or other problem. SOCIAL HISTORY: He is a registered member of the [employer]. He has a life partner named, Betty Conner. PHYSICAL EXAMINATION: An elderly Haitian man who is alert and oriented and without sign of hypotension. He is alert and oriented. His trachea is midline. He has no dyspnea. His left arm is examined showing a C-clamp medical technologist prn to the upper arm on the left side with bandages underneath for control of hemorrhage. Abdomen is nondistended. His pulse in the right radial area actually appears to be regular. Shows no sign of infection of the left or right arm at this time. ASSESSMENT: Upon further discussion with the patient, he has had episodes of nonclotting of his Electronically Signed By: JULIANA LESLIE MD 07/29/18 1123 PATIENT NAME: ELLA ALLAN CONSULTATION DATE OF : 45 REPORT #: [id number] PHYSICIAN: JULIANA LESLIE MD PCP: KARIME PEREA REPORT IS CONFIDENTIAL AND NOT TO BE RELEASED WITHOUT AUTHORIZATION [facility] [address], [place] [address] Signed graft in the past. This was usually managed with direct pressure over time, but at least on one occasion, he was seen by his avascular surgeon in the [facility] area where the AV graft was placed. Attempts by the emergency room physician at control have been unsuccessful. Consideration was made for transfer to the operating room to more fully explore the source of his bleeding, repair of the AV graft without causing impediment to flow. Upon release of the gauze and C-clamp in the emergency room for my own evaluation, he did have continuous stream of bleeding and good pulsatile flow in the graft proximally and distally. He does have aneurysmal changes, however. I believe an attempt set up by myself with a different approach may be successful in controlling this without having to actually go to the operating room in this situation. On that basis, I have recommended local control and he agrees to those attempts. DESCRIPTION OF PROCEDURE: The patient in the supine position, the bandages were removed and sterile glove used to occlude the continuous stream of bleeding from the AV fistula skin defect. This was accomplished by sterile gloved hand by the digital marketing assistant nurse. The area was then prepared with a Betadine solution and draped sterilely. A 4-0 Prolene suture was then placed after removing several Vicryl sutures that had been placed by the emergency room physician. A horizontal mattress suture was used to secure hemostasis without problem. Palpation of the AV graft shows good pulsatile flow. More full inspection of the area shows aneurysmal changes. There is a bandage inferiorly noted from puncture earlier in the day, which is hemostatic. Assessment: Control of arterial venous graft bleeding with simple suture technique. He will be observed for 15 or 20 minutes to be sure there is no further compromise and recurrent bleeding. He will follow up with his usual physician for suture removal in the next few days. If there are problems, he will return to the ER or other health care provider of his choice. MD MACIEL Murphy/JOSEL /[id number] cc: [facility] [place] Electronically Signed By: JULIANA LESLIE MD 07/29/18 1123 PATIENT NAME: ELLA ALLAN CONSULTATION DATE OF : 45 REPORT #: [id number] PHYSICIAN: JULIANA LESLIE MD PCP: KARIME PEREA REPORT IS CONFIDENTIAL AND NOT TO BE RELEASED WITHOUT AUTHORIZATION [address] [address] Signed Pickrell Aracely DAVIDSON MD Copies: KARIME PEREA ~ Electronically Signed By: JULIANA LESLIE MD 07/29/18 1123 PATIENT NAME: ELLA ALLAN CONSULTATION DATE OF : [birth year] REPORT #: [id number] PHYSICIAN: JULIANA LESLIE MD PCP: KARIME PEREA REPORT IS CONFIDENTIAL AND NOT TO BE RELEASED WITHOUT AUTHORIZATION
== END 2018-07-28 17:11 | disposition home or self-care (01) ==
LOC: ED 14:11
DX: T82.838A Hemorrhage due to vascular prosthetic devices, implants and grafts, initial encounter (principal); I10 Essential (primary) hypertension; Z79.899 Other long term (current) drug therapy
CPT/HCPCS: 99283

== ENCOUNTER 2018-08-23 13:29 | Emergency (ER) | payer MEDICARE, OTHER ==
[~2018-08-23] VITALS: Ht 180.3 cm; Wt 92.5 kg
--- OUTSIDE RECORDS SUMMARY | 2018-08-23 13:32 | XMS ---
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 Marianne VISIT COUNT (12 MO.) 2 [facility] TOTAL 2 NOTE: Visits indicate total known visits. ED/UCC VISIT TRACKING (12 MO.) 08/23/2018 13:29 [facility] [place] TYPE: Emergency COMPLAINT: - LEFT ARM BLEEDING 07/28/2018 14:12 [facility] [place] TYPE: Emergency COMPLAINT: - BLOOD NOT CLOTTING DIAGNOSES: - Essential (primary) hypertension - Other terminal gauger (current) drug therapy - Hemorrhage due to vascular prosthetic devices, implants and grafts, initial encounter INPATIENT VISIT TRACKING (12 MO.) No inpatient visits to display in this time frame [email or web address]
[2018-08-23] MEDS ORDERED: METOPROLOL SUCC50 MG PO (13:53)
== END 2018-08-23 14:25 | disposition home or self-care (01) ==
LOC: ED 13:29
PROC: 0XQ7XZZ Repair Left Upper Extremity, External Approach (ICD-10-PCS; principal; 2018-08-23)
DX: T82.838A Hemorrhage due to vascular prosthetic devices, implants and grafts, initial encounter (principal); I10 Essential (primary) hypertension; Z79.899 Other long term (current) drug therapy
CPT/HCPCS: 12001; 99283-25

== ENCOUNTER 2019-05-23 15:18 | Emergency (ER) | payer MEDICARE, OTHER ==
[~2019-05-23] VITALS: Ht 180.3 cm; Wt 92.5 kg
[~2019-05-23 15:18] MED LIST changes: +METOPROLOL SUCC50 MG PO
--- OUTSIDE RECORDS SUMMARY | 2019-05-23 15:22 | XMS ---
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 - Has Care Guidelines CARE PROVIDERS MYRNA PEREA Physician Wellness Instructor 08/24/2018-Current PHONE: Unknown Rebecca Jacobo Treatment Current Vee CHIANG PHONE: Unknown Gareth has no Care Guidelines for this patient. Care History Medical/Surgical 08/24/2018 [facility] \T\middot;\T\nbsp; PATIENT IS A [employer] MEMBER. \T\middot;\T\nbsp; PLEASE REFER PATIENT TO [facility] FOR NON EMERGENT MEDICAL NEEDS. \T\middot;\ T\nbsp; [facility] CAN SEE PATIENTS SAME DAY FOR APTS IF PATIENT CALLS FIRST THING IN THE MORNING. E.D. VISIT COUNT (12 MO.) 3 [facility] TOTAL 3 NOTE: Visits indicate total known visits. ED/UCC VISIT TRACKING (12 MO.) 05/23/2019 15:19 [facility] TYPE: Emergency COMPLAINT: - PORT ISSUE 08/23/2018 13:29 [facility] TYPE: Emergency COMPLAINT: - LEFT ARM BLEEDING DIAGNOSES: - Other director long term care (current) drug therapy - Hemorrhage due to vascular prosth dev/sin, init - Essential (primary) hypertension 07/28/2018 14:[address] [facility] [place] TYPE: Emergency COMPLAINT: - BLOOD NOT CLOTTING DIAGNOSES: - Essential (primary) hypertension - Other mcfp (current) drug therapy - Hemorrhage due to vascular prosth dev/grft, init INPATIENT VISIT TRACKING (12 MO.) No inpatient visits to display in this time frame [email or web address]
== END 2019-05-23 16:56 | disposition home or self-care (01) ==
LOC: ED 15:18
DX: T82.838A Hemorrhage due to vascular prosthetic devices, implants and grafts, initial encounter (principal); I10 Essential (primary) hypertension; Z87.891 Personal history of nicotine dependence
CPT/HCPCS: 99283

== ENCOUNTER 2020-02-10 15:42 | Emergency (ER) | payer MEDICARE, OTHER ==
[~2020-02-10] VITALS: Ht 180.3 cm; Wt 90.7 kg
--- OUTSIDE RECORDS SUMMARY | 2020-02-10 15:44 | XMS ---
PreManage Notification: ELLA ALLAN Security Forging Dies Final Finisher Events No recent Security Events currently on file CRITERIA MET - [facility] - Has Care Guidelines CARE PROVIDERS MYRNA PEREA Physician Electric Switch Repairer 08/24/2018-Current PHONE: Unknown Name [facility] 05/24/2019-Current PHONE: [phone] Gareth has no Care Guidelines for this patient. Care History Medical/Surgical 08/24/2018 [facility] PATIENT IS A [place], [facility] ELIGIBLE, \T\middot;\T\nbsp; PLEASE REFER PATIENT TO [facility] FOR NON EMERGENT MEDICAL NEEDS. \T\middot;\T\nbsp; [facility] CAN SEE PATIENTS SAME DAY FOR APTS IF PATIENT CALLS FIRST THING IN THE MORNING. E.D. VISIT COUNT (12 MO.) 2 [facility] TOTAL 2 NOTE: Visits indicate total known visits. ED/UCC VISIT TRACKING (12 MO.) 02/10/2020 15:42 [facility] [place] TYPE: Emergency COMPLAINT: - RIGHT LEG PAIN/INJURY 05/23/2019 15:19 [facility] [place] TYPE: Emergency COMPLAINT: - PORT ISSUE DIAGNOSES: - Essential (primary) hypertension - Hemorrhage due to vascular prosthetic devices, implants and grafts, initial encounter - Hemorrhage due to vascular prosthetic devices, implants and grafts, initial encounter - Personal history of nicotine dependence INPATIENT VISIT TRACKING (12 MO.) No inpatient visits to display in this time frame [email or web address]
[2020-02-10] MEDS ORDERED: CARVEDILOL3.125 MG PO (16:40)
[2020-02-10] MEDS ORDERED: COZAAR25 MG PO (16:41)
[2020-02-10] MEDS ORDERED: LIPITOR10 MG PO (16:41)
== END 2020-02-10 17:43 | disposition home or self-care (01) ==
LOC: ED 15:42
DX: S80.11XA Contusion of right lower leg, initial encounter (principal); W22.8XXA Striking against or struck by other objects, initial encounter; I10 Essential (primary) hypertension; Z79.899 Other long term (current) drug therapy
CPT/HCPCS: 73590; 99283-25

== ENCOUNTER 2023-10-23 11:29 | Emergency (ER) | payer OTHER, MEDICARE ==
[~2023-10-23] VITALS: Ht 180.3 cm; Wt 101.3 kg
[~2023-10-23 11:29] MED LIST changes: +CARVEDILOL3.125 MG PO; +COZAAR25 MG PO; +FOSRENOL1000 M1 PO; +LIPITOR10 MG PO; +NEPHRO-VITE TA0.8 MG PO; +OMEPRAZOLE20 MG PO
[2023-10-23] MEDS ORDERED: LACTATED RINGER'S 1,000 ML IV ONE (13:00)
[2023-10-23 13:04] LABS: BASOPHILS 0.7 % (0-2); EOSINOPHILS 2.8 % (0-6); HEMATOCRIT 33.6 % (35.0-50.0); HEMOGLOBIN 11.2 g/dL (12.0-18.0); LYMPHOCYTES 8.7 % (24-44); MCH 31.8 (27-36); MCHC 33.4 g/dl (30-36); MCV 95.2 fl (81-99); MONOCYTES 8.1 % (0-12); NEUTROPHILS 79.7 % (39-80); PLATELET COUNT 153 K/uL (140-440); RBC 3.53 M/ul (4.3-5.7); RDW 15.9 (10.5-15.0)
[2023-10-23 13:14] LABS: PARTIAL THROMBOPLASTIN TIME 28.7 Sec (22.9-41.3)
[2023-10-23 13:15] LABS: INR 1.02 (0.80-1.30); PROTIME 12.7 Sec (11.2-14.2)
[2023-10-23 13:19] LABS: ALBUMIN/GLOBULIN RATIO 0.77 (1.1-2.4); ALCOHOL, MEDICAL <3 ng/dL (<3); ALKALINE PHOSPHATASE 111 U/L (46-116); ALT (SGPT) 34 U/L (14-59); ANION GAP 15.1 (7-21); AST (SGOT) 37 U/L (15-37); BILIRUBIN, TOTAL 0.7 ng/dL (0.2-1.0); BUN/CREATININE RATIO 7.55 (6.0-28.6); CALCIUM 9.8 mg/dL (8.5-10.1); CARBON DIOXIDE 30 mmol/L (21-32); CHLORIDE 95 mmol/L (98-107); CREATINE KINASE 62 U/L (39-308); CREATININE, SERUM 7.15 mg/dL (0.70-1.30); GLOMERULAR FILTRATION RATE,EST 7 mL/min (>60); POTASSIUM 5.1 mmol/L (3.5-5.1); PROTEIN, TOTAL 6.9 g/dL (6.4-8.2); UREA NITROGEN 54 mg/dL (7-18)
[2023-10-23 13:29] LABS: AMYLASE 55 U/L (25-115)
[2023-10-23 13:44] LABS: ABO O; ANTIBODY SCREEN NEGATIVE; RH POSITIVE
[2023-10-23 14:59] VITALS: BP 132/62
== END 2023-10-23 14:59 | disposition short-term general hospital (02) ==
LOC: ED 11:29
PROVIDERS: Emergency Medicine
DX: S22.41XA Multiple fractures of ribs, right side, initial encounter for closed fracture (principal); S27.1XXA Traumatic hemothorax, initial encounter; W01.119A Fall on same level from slipping, tripping and stumbling with subsequent striking against unspecified sharp object, initial encounter; I12.0 Hypertensive chronic kidney disease with stage 5 chronic kidney disease or end stage renal disease; N18.6 End stage renal disease; Z79.899 Other long term (current) drug therapy
CPT/HCPCS: 36415; 71250; 74176; 80053; 82150; 82553; 83605; 83690; 85025; 85610; 85730; 86850; 86900; 86901; 96360; 96361; 99285-25; G0480; J7121

== ENCOUNTER 2023-11-20 11:16 | Emergency (ER) | payer MEDICARE, OTHER ==
[~2023-11-20] VITALS: Ht 180.3 cm; Wt 85.0 kg
[2023-11-20] MEDS ORDERED: PANTOPRAZOLE SODIUM 40 MG/10 ML VIAL IV ONE (12:00)
[2023-11-20 12:16] LABS: HEMOGLOBIN 9.4 g/dL (12.0-18.0); MCH 31.8 (27-36); MCHC 33.5 g/dl (30-36); MCV 94.9 fl (81-99); PLATELET COUNT 334 K/uL (140-440); RBC 2.95 M/ul (4.3-5.7); RDW 15.1 (10.5-15.0)
[2023-11-20 12:41] LABS: BANDS, MANUAL DIFF 2; BASOPHILS, MANUAL DIFF 1; EOSINOPHILS, MANUAL DIFF 9; LYMPHOCYTES, MANUAL DIFF 7; MONOCYTES, MANUAL DIFF 11; NEUTROPHILS, MANUAL DIFF 70
[2023-11-20 12:42] LABS: ALBUMIN 2.4 g/dL (3.4-5.0); ALBUMIN/GLOBULIN RATIO 0.5 (1.1-2.4); ANION GAP 13.3 (7-21); BILIRUBIN, TOTAL 3.7 ng/dL (0.2-1.0); BUN/CREATININE RATIO 4.29 (6.0-28.6); CREATININE, SERUM 5.35 mg/dL (0.70-1.30); POTASSIUM 3.3 mmol/L (3.5-5.1); PROTEIN, TOTAL 7.2 g/dL (6.4-8.2)
[2023-11-20 13:03] LABS: INFLUENZA B NAA NEGATIVE (NEGATIVE); RESPIRATORY SYNCYTIAL VIR NAA NEGATIVE (NEGATIVE)
[2023-11-20] MEDS ORDERED: ondansetron HCL 4 MG/2 ML VIAL IV ONE (15:45)
[2023-11-20] MEDS ORDERED: PROTONIX40 M1 PO (17:05)
[2023-11-20] MEDS ORDERED: HYDROCODON-ACE1 EA10 PO (17:07)
[2023-11-20] MEDS ORDERED: ONDANSETRON ODT8 MG PO (17:09)
[2023-11-20 17:20] VITALS: BP 131/69
--- NOTE | 2023-11-20 22:08 | EKG ---
[facility] [address] [place] [address] Signed Sinus rhythm with marked sinus arrhythmia with 1st degree AV block with occasional premature ventricular complexes Left axis deviation Right bundle branch block Abnormal ECG When compared with ECG of 05-JUN-2023 17:17, premature ventricular complexes are now present premature supraventricular complexes are no longer present Confirmed by Triny Zabala MD () on 11/20/2023 10:08:40 PM Electronically Signed By: TRINY ZABALA MD 11/20/23 2208 PATIENT NAME: ELLA ALLAN Electrocardiogram DATE OF : 45 PHYSICIAN: TRINY ZABALA MD REPORT #: [id number] REPORT IS CONFIDENTIAL AND NOT TO BE RELEASED WITHOUT AUTHORIZATION
== END 2023-11-20 17:20 | disposition home or self-care (01) ==
LOC: ED 11:16
PROVIDERS: Emergency Medicine
DX: K92.2 Gastrointestinal hemorrhage, unspecified (principal); D64.9 Anemia, unspecified; I12.0 Hypertensive chronic kidney disease with stage 5 chronic kidney disease or end stage renal disease; N18.6 End stage renal disease; L89.321 Pressure ulcer of left buttock, stage 1; L89.311 Pressure ulcer of right buttock, stage 1; Z99.2 Dependence on renal dialysis; Z79.899 Other long term (current) drug therapy
CPT/HCPCS: 36415; 80053; 83735; 84484; 85018; 85025; 87502; 93005; 93010; 96374; 96375; 99283-25; J2405; J2470; U0002

== ENCOUNTER 2024-02-07 10:59 | Emergency (ER) | payer MEDICARE, OTHER ==
[~2024-02-07] VITALS: Ht 180.3 cm; Wt 83.7 kg
[~2024-02-07 10:59] MED LIST changes: +HYDROCODON-ACE1 EA10 PO; +ONDANSETRON ODT8 MG PO; +PROTONIX40 M1 PO
[2024-02-07 11:27] LABS: BASOPHILS 1.5 % (0-2); EOSINOPHILS 7.6 % (0-6); HEMATOCRIT 30.5 % (35.0-50.0); HEMOGLOBIN 10.4 g/dL (12.0-18.0); LYMPHOCYTES 17.6 % (24-44); MCHC 34.2 g/dl (30-36); MCV 93.7 fl (81-99); MONOCYTES 11.6 % (0-12); NEUTROPHILS 61.7 % (39-80); PLATELET COUNT 190 K/uL (140-440); RBC 3.25 M/ul (4.3-5.7); RDW 16.9 (10.5-15.0)
[2024-02-07 11:39] LABS: ANION GAP 18.2 (7-21); BUN/CREATININE RATIO 5.88 (6.0-28.6); CALCIUM 10.3 mg/dL (8.5-10.1); CREATININE, SERUM 5.44 mg/dL (0.70-1.30); POTASSIUM 5.2 mmol/L (3.5-5.1)
[2024-02-07] MEDS ORDERED: BACTRIM DS TAB1 EACH PO (12:32)
[2024-02-07 12:43] VITALS: BP 166/89
== END 2024-02-07 12:43 | disposition home or self-care (01) ==
LOC: ED 10:59
PROVIDERS: Emergency Medicine
DX: L98.8 Other specified disorders of the skin and subcutaneous tissue (principal); I12.0 Hypertensive chronic kidney disease with stage 5 chronic kidney disease or end stage renal disease; N18.6 End stage renal disease; Z79.899 Other long term (current) drug therapy
CPT/HCPCS: 36415; 73630; 80048; 85025; 86140; 99283

== ENCOUNTER 2024-02-29 21:40 | Emergency (ER) | payer MEDICARE, OTHER ==
[~2024-02-29] VITALS: Ht 180.3 cm; Wt 85.0 kg
[~2024-02-29 21:40] MED LIST changes: +BACTRIM DS TAB1 EACH PO
[2024-02-29 22:47] LABS: BASOPHILS 2.5 % (0-2); EOSINOPHILS 8.7 % (0-6); HEMATOCRIT 29.4 % (35.0-50.0); HEMOGLOBIN 9.7 g/dL (12.0-18.0); LYMPHOCYTES 16.1 % (24-44); MCH 33.7 (27-36); MCHC 33.2 g/dl (30-36); MCV 101.4 fl (81-99); MONOCYTES 10.1 % (0-12); NEUTROPHILS 62.6 % (39-80); PLATELET COUNT 155 K/uL (140-440); RDW 24.8 (10.5-15.0)
[2024-02-29 23:04] LABS: ALBUMIN 2.5 g/dL (3.4-5.0); ALBUMIN/GLOBULIN RATIO 0.54 (1.1-2.4); ANION GAP 12.2 (7-21); BILIRUBIN, TOTAL 1.8 ng/dL (0.2-1.0); BUN/CREATININE RATIO 2.98 (6.0-28.6); CALCIUM 9.1 mg/dL (8.5-10.1); CREATININE, SERUM 3.02 mg/dL (0.70-1.30); POTASSIUM 4.2 mmol/L (3.5-5.1); PROTEIN, TOTAL 7.1 g/dL (6.4-8.2)
[2024-02-29] MEDS ORDERED: HYDROCODONE/ACETA 5/325 TAB PO ONE (23:30)
[2024-02-29] MEDS ORDERED: AUGMENTIN 500-1 EACH PO (23:34)
[2024-02-29] MEDS ORDERED: HYDROCODON-ACE1 EA10 PO (23:34)
[2024-03-01 00:38] VITALS: BP 132/61
== END 2024-03-01 00:39 | disposition home or self-care (01) ==
LOC: ED 21:40
PROVIDERS: Family Medicine
DX: I96 Gangrene, not elsewhere classified (principal); I10 Essential (primary) hypertension; Z79.899 Other long term (current) drug therapy; Z99.2 Dependence on renal dialysis
CPT/HCPCS: 36415; 73630; 80053; 85025; 85060; 86140; 99283

== ENCOUNTER 2024-03-04 22:39 | Emergency (ER) | payer MEDICARE, OTHER ==
[~2024-03-04] VITALS: Ht 180.3 cm; Wt 81.6 kg
[~2024-03-04 22:39] MED LIST changes: +AUGMENTIN 500-1 EACH PO
[2024-03-04] MEDS ORDERED: OXYCODONE HCL 5 MG TAB PO ONE (23:45)
[2024-03-05] MEDS ORDERED: OXYCODONE HCL5 MG PO (00:31)
[2024-03-05 00:40] VITALS: BP 137/83
== END 2024-03-05 00:43 | disposition home or self-care (01) ==
LOC: ED 22:39
DX: I96 Gangrene, not elsewhere classified (principal); I12.0 Hypertensive chronic kidney disease with stage 5 chronic kidney disease or end stage renal disease; N18.6 End stage renal disease; Z99.2 Dependence on renal dialysis; Z79.2 Long term (current) use of antibiotics; Z79.899 Other long term (current) drug therapy
CPT/HCPCS: 73630; 99283; A9270

== ENCOUNTER 2024-03-21 16:03 | Emergency (ER) | payer MEDICARE, OTHER ==
[~2024-03-21] VITALS: Ht 180.3 cm; Wt 83.0 kg
[~2024-03-21 16:03] MED LIST changes: +OXYCODONE HCL5 MG PO
[2024-03-21] MEDS ORDERED: TUMS300 MG PO (16:23)
[2024-03-21] MEDS ORDERED: AMOX TR-K CLV1 EAC1 PO (16:24)
[2024-03-21 18:30] VITALS: BP 150/83
== END 2024-03-21 18:30 | disposition home or self-care (01) ==
LOC: ED 16:03
DX: I96 Gangrene, not elsewhere classified (principal); I12.0 Hypertensive chronic kidney disease with stage 5 chronic kidney disease or end stage renal disease; N18.6 End stage renal disease; Z99.2 Dependence on renal dialysis; Z79.899 Other long term (current) drug therapy
CPT/HCPCS: 99283

== ENCOUNTER 2024-03-23 16:28 | Emergency (ER) | payer MEDICARE, OTHER ==
[~2024-03-23] VITALS: Ht 180.3 cm; Wt 83.0 kg
[~2024-03-23 16:28] MED LIST changes: +AMOX TR-K CLV1 EAC1 PO; +TUMS300 MG PO
[2024-03-23 18:07] VITALS: BP 153/97
== END 2024-03-23 18:03 | disposition home or self-care (01) ==
LOC: ED 16:28
DX: T82.838A Hemorrhage due to vascular prosthetic devices, implants and grafts, initial encounter (principal); I96 Gangrene, not elsewhere classified; I12.0 Hypertensive chronic kidney disease with stage 5 chronic kidney disease or end stage renal disease; N18.6 End stage renal disease; Z99.2 Dependence on renal dialysis; Z79.2 Long term (current) use of antibiotics; Z79.899 Other long term (current) drug therapy
CPT/HCPCS: 99283

== ENCOUNTER 2024-03-26 16:09 | Emergency (ER) | payer MEDICARE, OTHER ==
[~2024-03-26] VITALS: Ht 180.3 cm; Wt 81.6 kg
[2024-03-26 17:13] LABS: HEMATOCRIT 27.4 % (35.0-50.0); HEMOGLOBIN 9.5 g/dL (12.0-18.0); MCH 35.8 (27-36); MCHC 34.8 g/dl (30-36); MCV 102.8 fl (81-99); PLATELET COUNT 217 K/uL (140-440); RBC 2.66 M/ul (4.3-5.7); RDW 22.8 (10.5-15.0)
[2024-03-26 17:19] LABS: INR 1.16 (0.80-1.30); PROTIME 14.7 Sec (11.2-14.2)
[2024-03-26 17:22] LABS: PARTIAL THROMBOPLASTIN TIME 36.8 Sec (22.9-41.3)
[2024-03-26 17:25] LABS: ALBUMIN/GLOBULIN RATIO 0.39 (1.1-2.4); ANION GAP 16.3 (7-21); BILIRUBIN, TOTAL 13.3 ng/dL (0.2-1.0); BUN/CREATININE RATIO 8.04 (6.0-28.6); CALCIUM 10.2 mg/dL (8.5-10.1); CREATININE, SERUM 4.35 mg/dL (0.70-1.30); POTASSIUM 4.3 mmol/L (3.5-5.1); PROTEIN, TOTAL 7.1 g/dL (6.4-8.2)
[2024-03-26 17:30] LABS: BANDS, MANUAL DIFF 1; BASOPHILS, MANUAL DIFF 1; EOSINOPHILS, MANUAL DIFF 5; LYMPHOCYTES, MANUAL DIFF 12; MONOCYTES, MANUAL DIFF 11; NEUTROPHILS, MANUAL DIFF 70
[2024-03-26 17:43] LABS: ABO O; RH POSITIVE
[2024-03-26 17:44] LABS: ANTIBODY SCREEN NEGATIVE
[2024-03-26 20:26] LABS: MCH 35.8 (27-36)
[2024-03-26 20:29] LABS: HEMATOCRIT 27.8 % (35.0-50.0); HEMOGLOBIN 9.7 g/dL (12.0-18.0); MCHC 34.7 g/dl (30-36); MCV 103.2 fl (81-99); PLATELET COUNT 221 K/uL (140-440); RDW 22.9 (10.5-15.0)
[2024-03-26 20:56] LABS: BANDS, MANUAL DIFF 2; BASOPHILS, MANUAL DIFF 2; EOSINOPHILS, MANUAL DIFF 4; LYMPHOCYTES, MANUAL DIFF 14; MONOCYTES, MANUAL DIFF 8; NEUTROPHILS, MANUAL DIFF 70
[2024-03-26 21:45] VITALS: BP 157/93
== END 2024-03-26 21:45 | disposition home or self-care (01) ==
LOC: ED 16:09
PROVIDERS: Emergency Medicine
DX: K57.91 Diverticulosis of intestine, part unspecified, without perforation or abscess with bleeding (principal); I12.0 Hypertensive chronic kidney disease with stage 5 chronic kidney disease or end stage renal disease; N18.6 End stage renal disease; Z79.899 Other long term (current) drug therapy
CPT/HCPCS: 36415; 74176; 80053; 85025; 85610; 85730; 86850; 86900; 86901; 99284-25

== ENCOUNTER 2024-03-28 12:54 | Emergency (ER) | payer MEDICARE, OTHER ==
[~2024-03-28] VITALS: Ht 180.3 cm; Wt 84.8 kg
[2024-03-28 13:19] LABS: HEMATOCRIT 20.5 % (35.0-50.0); HEMOGLOBIN 7.1 g/dL (12.0-18.0); MCHC 34.7 g/dl (30-36); MCV 103.8 fl (81-99); PLATELET COUNT 227 K/uL (140-440); RBC 1.98 M/ul (4.3-5.7); RDW 22.8 (10.5-15.0)
[2024-03-28 13:36] LABS: ALBUMIN 1.8 g/dL (3.4-5.0); ALBUMIN/GLOBULIN RATIO 0.4 (1.1-2.4); ANION GAP 20.7 (7-21); BILIRUBIN, TOTAL 12.9 ng/dL (0.2-1.0); BUN/CREATININE RATIO 10.34 (6.0-28.6); CALCIUM 9.9 mg/dL (8.5-10.1); CREATININE, SERUM 6.09 mg/dL (0.70-1.30); POTASSIUM 5.7 mmol/L (3.5-5.1); PROTEIN, TOTAL 6.3 g/dL (6.4-8.2)
[2024-03-28 13:42] LABS: BANDS, MANUAL DIFF 1; EOSINOPHILS, MANUAL DIFF 2; LYMPHOCYTES, MANUAL DIFF 17; MONOCYTES, MANUAL DIFF 1; NEUTROPHILS, MANUAL DIFF 79
[2024-03-28 15:11] LABS: ABO O; RH POSITIVE
[2024-03-28 15:12] LABS: ANTIBODY SCREEN NEGATIVE
[2024-03-28 15:14] LABS: IS CROSSMATCH COMPATIBLE
[2024-03-28] MEDS ORDERED: PANTOPRAZOLE SODIUM 40 MG/10 ML VIAL IV ONE (15:15)
[2024-03-28 16:11] VITALS: BP 149/72
--- NOTE | 2024-03-29 18:28 | EKG ---
[facility] [address] [facility] [place] [address] Signed Sinus rhythm with marked sinus arrhythmia with 1st degree AV block Left axis deviation Right bundle branch block Inferior infarct , age undetermined Abnormal ECG When compared with ECG of 20-NOV-2023 12:05, premature ventricular complexes are no longer present Confirmed by Froy Hodge MD ([id number]) on 03/29/2024 6:28:25 PM Electronically Signed By: FROY HODGE MD 03/29/24 1828 PATIENT NAME: JERRELLELLA ROMAN Electrocardiogram DATE OF : 45 PHYSICIAN: FROY HODGE MD REPORT #: [id number] REPORT IS CONFIDENTIAL AND NOT TO BE RELEASED WITHOUT AUTHORIZATION
== END 2024-03-28 16:11 | disposition short-term general hospital (02) ==
LOC: ED 12:54
PROVIDERS: Emergency Medicine
DX: K92.2 Gastrointestinal hemorrhage, unspecified (principal); I12.9 Hypertensive chronic kidney disease with stage 1 through stage 4 chronic kidney disease, or unspecified chronic kidney disease; N18.9 Chronic kidney disease, unspecified
CPT/HCPCS: 36415; 36430; 80053; 85025; 86850; 86900; 86901; 86922; 93005; 93010; 96374; 99285-25; J2470; P9016